=== PATIENT | male | born 1945 | race Caucasian/White ===

== ENCOUNTER → 2019-08-08 11:34 | Outpatient (BNVA) | payer MEDICARE, MEDICAID, SELFPAY | PROVIDERS: Family Provider Family Medicine; PCP Family Medicine; Visit Provider Nurse Practitioner | DX: N39.0 Urinary tract infection, site not specified (principal) | CPT/HCPCS: 81003 ==

== ENCOUNTER 2019-08-11 18:16 | Inpatient (IN) | payer MEDICARE, MEDICAID, SELFPAY ==
[2019-08-11 18:22] VITALS: BP 174/98; PULSE 112; RESP 28; TEMP 36.9; O2SAT 99; BMI 31.8
--- NOTE | 2019-08-11 22:49 | ED_ITS ---
Entered by Dena Simpson, acting as scribe for Darline Mckeon Aug 11, 2019 18:16 Documented by User: Darline Mckeon 08/12/19 04:22 HPI - General Adult General: Chief complaint: General Medical Stated complaint: poss bladder infection Time Seen by Provider: 08/11/19 22:41 History of Present Illness: HPI narrative: 74 y/o male presents to the ED with complaint of nausea. Pt was seen at Urgent Care on Friday and was dx with a bladder infection. Pt was placed on abx. He has had nausea and dry heaves today. Family reports a slow decline in overall health since June 2019. Pt has had decreased intake over he past several days. He denies any fevers or decreased stool output. He has had no chest pain or shortness of breath. He states that he will frequently get up to urinate but only a few drops will come out. He denies feeling distended and has never had an obstructed bladder. MD complaint: Nausea Onset (ago): day(s) Location: abdomen Pain Consistency: constant Relieving factors: none Exacerbating factors: eating Associated symptoms: Reports nausea and vomiting; Deny chest pain, confusion, diaphoresis, dyspnea, headache(s), rash, palpitations or syncope Review of Systems Const: Denies: fever, chills, body aches or diaphoresis Eyes: Denies: change in vision or blurry vision ENMT: Denies: throat pain, painful swallowing, hoarseness, ear pain, ear discharge, Change in hearing or nasal discharge Card: Denies: chest pain, palpitations, irregular heart rhythm, syncope, pre- syncope, shortness of breath on exertion or shortness of breath when lying down Resp: Denies: shortness of breath, productive cough, non-productive cough, wheezing, coughing up blood or chest congestion GI: Reports: nausea, vomiting and other (see HPI) : Denies: flank pain, difficulty urinating, painful urination, urinary frequency, urinary urgency, decreased urine ouput, urinary incontinence or blood in urine Musc: Denies: neck pain, back pain, extremity pain, extremity swelling, joint pain, joint swelling, joint warmth or joint stiffness Skin/Breast: Denies: rash, skin tenderness or yellow skin Neuro: Denies: headache, numbness in extremities, weakness in extremities, changes in sensation, lack of coordination, difficulty walking, dizziness, vertigo or confusion Endo: Denies: excessive thirst, tired all the time, cold intolerance, excessive sweating, flushing or hot flashes Satnam/Lymph: Denies: easy bruising, easy bleeding, petechiae or enlarged lymph nodes All/Imm: Denies: hives, throat swelling, tongue swelling, facial swelling or acute wheezing PFSH ED PFSH: Statuses (acute, chronic, etc) shown below reflect problem list status as previously entered and may not be historically accurate Medical History Skin cancer (Acute) 07/2017 large squamous cell skin cancer removed from right anterior chest wall. no metastasis. Surgical History S/P tonsillectomy (Acute) Family History (Updated 08/12/19 @ 14:16 by Maxi Borrego MD) Father Prostate cancer Social History Smoking and tobacco status: former smoker Quit status (tobacco): has quit using tobacco Second hand smoke exposure: No Smoking risk assessment/counseling performed?: No Alcohol intake: unknown Desire information about alcohol rehabilitation?: No Counseling given: No Desire information about substance/drug rehabilitation?: No Counseling given: No Adopted: No Caregiver/support person: No Lives independently: Yes Marital status: Single service: Yes Physical Exam Const: COMMON NORMALS: no apparent distress, oriented x3, no limitations, healthy appearing and well nourished EXAM LIMITATIONS: no altered mental status GENERAL APPEARANCE: cooperative, well kempt and well developed ORIENTATION/CONSCIOUSNESS: Yes awake HENMT: COMMON NORMALS: normocephalic, head/scalp atraumatic, hearing grossly n ormal bilaterally, external ears normal, EAC's normal, external nose normal and moist oral mucous membranes HEAD & SCALP: normal to inspection, normocephalic and atraumatic FACE & SINUS: normal facial exam and face symmetric NOSE: external nose normal and nares normal EXTERNAL EAR: Yes external ears normal EXTERNAL AUDITORY CANAL: EAC's normal MOUTH: oral and palatal mucosa normal and tongue normal Eye: COMMON NORMALS: PERRL, EOMs intact bilaterally, conjunctivae normal and no scleral icterus GENERAL EYE: normal appearance of both eyes and normal light reflex CONJUNCTIVA: Yes conjunctivae normal SCLERA: sclerae normal CORNEA: Yes corneas normal PUPIL: Yes PERRL DIRECT OPHTHALMOSCOPY: Yes normal light reflex Neck/C-Spine: COMMON NORMALS: full ROM, no lymphadenopathy, supple, no meningeal signs and no JVD GENERAL: Yes normal visual inspection and Yes trachea midline CERVICAL SPINE: Yes cervical ROM normal Chest: COMMONS NORMALS: inspection of chest normal and palpation of chest normal Resp: COMMON NORMALS: normal respiratory effort, no retractions, no use of accessory muscles and clear to auscultation bilaterally EFFORT & INSPECTION: Yes able to speak in complete sentences AUSCULTATION: clear to auscultation bilaterally Cardio: COMMON NORMALS: no JVD, regular rate, regular rhythm, S1 normal heart sound, S2 normal heart sound, no gallops, no clicks, no murmurs and no rub JUGULAR VENOUS DISTENTION: no JVD RATE: regular rate RHYTHM: regular rhythm HEART SOUNDS: S1 normal and S2 normal : COMMON NORMALS: Yes no CVA tenderness BLADDER/KIDNEY EXAM: Yes no CVA tenderness Back/Pelvis: COMMON NORMALS: no CVA tenderness, thoracic and lumbar spine normal to inspection, no thoracic nor lumbar tenderness and thoraco-lumbar ROM normal Extremity: COMMON NORMALS: normal to inspection, full ROM, normal capillary refill, no joint enlargement, no clubbing, cyanosis or edema and no calf tenderness Neuro: COMMON NORMALS: oriented x3, CN's II-XII intact bilaterally, moves all extremities, no focal motor deficits and no sensory deficits noted MENINGEAL SIGNS: Yes no meningeal signs Psych: COMMON NORMALS: mental status grossly normal, thought process normal, cooperative, affect normal, speech normal and activity/motor behavior normal APPEARANCE: Yes well kempt SPEECH: Yes normal speech THOUGHT PROCESS: normal thought process Skin: COMMON NORMALS: no rashes or lesions noted, skin turgor normal, no jaundice, no petechiae and no mottling GENERAL SKIN EXAM: no rashes or lesions noted and turgor normal Course ED course: 0049: Call out to Tele-Nephrology 0052: Dr. Giron will dialyze pt 0053: Dr. Degroot notified that pt will need dialysis catheter placed 0240: Dialysis catheter in place, dialysis nurse in dialysis room, ACLS certified nurse present and patient in dialysis. Patient had completed hyperkalemic cocktail prior to going to dialysis. Vital Signs: Vital signs: Vital Signs Temperature 98.6 F 08/13/19 06:00 Pulse Rate 91 08/13/19 14:00 Respiratory Rate 32 H 08/13/19 14:00 Blood Pressure 102/59 08/13/19 14:00 Pulse Oximetry 86 L 08/13/19 14:00 MDM - General Adult MDM Narrative: Medical decision making narrative: Patient arrives with complaint of urinary tract infection. Seen in urgent care 2 days prior and put on Bactrim but cannot tolerate secondary to nausea. Patient relates a gradual decline since June but family states he has had a much worse route over the past 2 to 3 days. Patient ill-appearing but not toxic. Walking and talking keeps trying to go to the bathroom but cannot produce any urine. Patient's labs returned with potassium of 9.2 and confirmed on recheck. Hyperkalemic cocktail was ordered and given by me. Dr. Hoffman consulted and has made arrangements for the patient to go to dialysis emergently. Dr. Degroot was gracious enough to come in and emergently put in a dialysis catheter for temporary dialysis. Boo catheter was placed with only 100 cc of dark urine obtained. Further work-up for renal failure has been placed by Dr. Hoffman. The case was reviewed with Dr. Borrego and he is aware of the patient's presence in the hospital. The patient is going to go to the dialysis room and then return to the ER as we currently have no available beds. Further care will be evaluated when the patient returns. Lab Data: Labs: Lab Results 08/11/19 08/11/19 08/11/19 Range/Units 23:45 23:46 23:46 WBC 11.4 H (4.0-10.0) 10^3/ uL RBC 3.81 L (4.1-5.3) 10^6/u L Hgb 11.2 L (11.7-16.6) g/dL Hct 37.7 L (42.0-52.0) % MCV 99.0 H (80-94) fL MCH 29.4 (28.0-34.0) pg MCHC 29.7 L (30.0-36.0) g/dL RDW 14.5 (12.1-15.1) % Plt Count 318 (130-400) 10^3/c mm MPV 10.0 (7.4-10.4) fL Neut % (Auto) 89.6 % Lymph % (Auto) 4.8 % Bladen % (Auto) 4.2 % Eos % (Auto) 0.4 % Baso % (Auto) 0.6 % Neut # (Auto) 10.2 H (1.8-7.7) 10^3/u L Lymph # (Auto) 0.6 L (0.8-4.8) 10^3/u L Bladen # (Auto) 0.5 (0.2-0.9) 10^3/u L Eos # (Auto) 0.1 (0.0-0.8) 10^3/u L Baso # (Auto) 0.1 (0.0-0.1) 10^3/u L Nucleated RBC % (a uto) 0 % Nucleated RBCs # 0.0 /100WBC Sodium 136 (136-145) mmol/L Potassium 9.2 H* (3.5-5.1) mmol/L Chloride 105 (98-107) mmol/L Carbon Dioxide 11 L (22-29) mmol/L Anion Gap 29.2 H (5-19) BUN 136 H* (8-23) mg/dL Creatinine 15.0 H* (0.7-1.2) mg/dL Glucose 137 H (74-106) mg/dL Calculated Osmolal ity (285-295) mOsm/k g Lactic Acid (0.5-2.2) mmol/L Calcium 11.1 H (8.8-10.2) mg/Dl Magnesium 2.3 (1.7-2.3) mg/dL Total Bilirubin 0.3 (0.15-1.2) mg/dL AST 14 (0-40) U/L ALT 12 (0-41) U/L Alkaline Phosphata se 121 (40-130) IU/L Troponin I 6 Hour (0-15) ng/L Troponin I Hi Sens Del (0-12) ng/L Troponin T Baselin e (0-15) ng/mL Troponin T 120 Min rincon (0-15) ng/mL Delta Troponin T (0-10) ABS# NT-Pro-B Natriuret Pep 92583 H (0-125) pg/mL Total Protein 9.1 H (6.6-8.7) g/dL Albumin 5.0 (3.5-5.2) g/dL Globulin 4.1 (1.3-4.6) g/dL Urine Color Yellow (Yellow) Urine Appearance Turbid (CLEAR) Urine pH 5 (5-7) Ur Specific Gravit y 1.015 (1.005-1.030) Urine Protein 3+ H (Negative) Urine Glucose (UA) Norm (Normal) Urine Ketones Negative (Negative) Urine Occult Blood 3+ H (Negative) Urine Nitrate Negative (Negative) Urine Bilirubin Neg (NEGATIVE) Urine Urobilinogen Norm (Negative) mg/dL Ur Leukocyte Leena ase 1+ H (Negative) Urine RBC 50-80 H (0-2) /hpf Urine WBC 15-25 H (0-5) /hpf Ur Squamous Epith Cells None (0-5) Ur Renal Epithelia l Cell 5-10 /hpf Urine Bacteria 2+ H (NONE) Urine Mucus 1+ Hep Bs Antigen (Nonreactive) Hep Bs Antibody (0-8.5) Hepatitis C Antibo dy (Nonreactive) Influenza Type A A g (Negative) POC Influenza B Ag (Negative) 08/11/19 08/11/19 08/12/19 Range/Units 23:46 23:46 00:15 WBC (4.0-10.0) 10^3/ uL RBC (4.1-5.3) 10^6/u L Hgb (11.7-16.6) g/dL Hct (42.0-52.0) % MCV (80-94) fL MCH (28.0-34.0) pg MCHC (30.0-36.0) g/dL RDW (12.1-15.1) % Plt Count (130-400) 10^3/c mm MPV (7.4-10.4) fL Neut % (Auto) % Lymph % (Auto) % Bladen % (Auto) % Eos % (Auto) % Baso % (Auto) % Neut # (Auto) (1.8-7.7) 10^3/u L Lymph # (Auto) (0.8-4.8) 10^3/u L Bladen # (Auto) (0.2-0.9) 10^3/u L Eos # (Auto) (0.0-0.8) 10^3/u L Baso # (Auto) (0.0-0.1) 10^3/u L Nucleated RBC % (a uto) % Nucleated RBCs # /100WBC Sodium (136-145) mmol/L Potassium (3.5-5.1) mmol/L Chloride (98-107) mmol/L Carbon Dioxide (22-29) mmol/L Anion Gap (5-19) BUN (8-23) mg/dL Creatinine (0.7-1.2) mg/dL Glucose (74-106) mg/dL Calculated Osmolal ity (285-295) mOsm/k g Lactic Acid 1.3 (0.5-2.2) mmol/L Calcium (8.8-10.2) mg/Dl Magnesium (1.7-2.3) mg/dL Total Bilirubin (0.15-1.2) mg/dL AST (0-40) U/L ALT (0-41) U/L Alkaline Phosphata se (40-130) IU/L Troponin I 6 Hour (0-15) ng/L Troponin I Hi Sens Del (0-12) ng/L Troponin T Baselin e 96 H (0-15) ng/mL Troponin T 120 Min rincon (0-15) ng/mL Delta Troponin T (0-10) ABS# NT-Pro-B Natriuret Pep (0-125) pg/mL Total Protein (6.6-8.7) g/dL Albumin (3.5-5.2) g/dL Globulin (1.3-4.6) g/dL Urine Color (Yellow) Urine Appearance (CLEAR) Urine pH (5-7) Ur Specific Gravit y (1.005-1.030) Urine Protein (Negative) Urine Glucose (UA) (Normal) Urine Ketones (Negative) Urine Occult Blood (Negative) Urine Nitrate (Negative) Urine Bilirubin (NEGATIVE) Urine Urobilinogen (Negative) mg/dL Ur Leukocyte Leena ase (Negative) Urine RBC (0-2) /hpf Urine WBC (0-5) /hpf Ur Squamous Epith Cells (0-5) Ur Renal Epithelia l Cell /hpf Urine Bacteria (NONE) Urine Mucus Hep Bs Antigen (Nonreactive) Hep Bs Antibody (0-8.5) Hepatitis C Antibo dy (Nonreactive) Influenza Type A A g Negative (Negative) POC Influenza B Ag Negative (Negative) 08/12/19 08/12/19 08/12/19 Range/Units 00:48 00:48 01:30 WBC (4.0-10.0) 10^3/ uL RBC (4.1-5.3) 10^6/u L Hgb (11.7-16.6) g/dL Hct (42.0-52.0) % MCV (80-94) fL MCH (28.0-34.0) pg MCHC (30.0-36.0) g/dL RDW (12.1-15.1) % Plt Count (130-400) 10^3/c mm MPV (7.4-10.4) fL Neut % (Auto) % Lymph % (Auto) % Bladen % (Auto) % Eos % (Auto) % Baso % (Auto) % Neut # (Auto) (1.8-7.7) 10^3/u L Lymph # (Auto) (0.8-4.8) 10^3/u L Bladen # (Auto) (0.2-0.9) 10^3/u L Eos # (Auto) (0.0-0.8) 10^3/u L Baso # (Auto) (0.0-0.1) 10^3/u L Nucleated RBC % (a uto) % Nucleated RBCs # /100WBC Sodium 136 (136-145) mmol/L Potassium 9.2 H* (3.5-5.1) mmol/L Chloride 106 (98-107) mmol/L Carbon Dioxide 11 L (22-29) mmol/L Anion Gap 28.2 H (5-19) BUN 135 H* (8-23) mg/dL Creatinine 15.0 H* (0.7-1.2) mg/dL Glucose 131 H (74-106) mg/dL Calculated Osmolal ity 287 (285-295) mOsm/k g Lactic Acid (0.5-2.2) mmol/L Calcium 10.7 H (8.8-10.2) mg/Dl Magnesium (1.7-2.3) mg/dL Total Bilirubin (0.15-1.2) mg/dL AST (0-40) U/L ALT (0-41) U/L Alkaline Phosphata se (40-130) IU/L Troponin I 6 Hour (0-15) ng/L Troponin I Hi Sens Del (0-12) ng/L Troponin T Baselin e (0-15) ng/mL Troponin T 120 Min rincon 96.46 H (0-15) ng/mL Delta Troponin T 0.46 (0-10) ABS# NT-Pro-B Natriuret Pep (0-125) pg/mL Total Protein (6.6-8.7) g/dL Albumin (3.5-5.2) g/dL Globulin (1.3-4.6) g/dL Urine Color (Yellow) Urine Appearance (CLEAR) Urine pH (5-7) Ur Specific Gravit y (1.005-1.030) Urine Protein (Negative) Urine Glucose (UA) (Normal) Urine Ketones (Negative) Urine Occult Blood (Negative) Urine Nitrate (Negative) Urine Bilirubin (NEGATIVE) Urine Urobilinogen (Negative) mg/dL Ur Leukocyte Leena ase (Negative) Urine RBC (0-2) /hpf Urine WBC (0-5) /hpf Ur Squamous Epith Cells (0-5) Ur Renal Epithelia l Cell /hpf Urine Bacteria (NONE) Urine Mucus Hep Bs Antigen Non-reactive (Nonreactive) Hep Bs Antibody (0-8.5) Hepatitis C Antibo dy (Nonreactive) Influenza Type A A g (Negative) POC Influenza B Ag (Negative) 08/12/19 08/12/19 08/12/19 Range/Units 01:30 01:30 06:22 WBC (4.0-10.0) 10^3/ uL RBC (4.1-5.3) 10^6/u L Hgb (11.7-16.6) g/dL Hct (42.0-52.0) % MCV (80-94) fL MCH (28.0-34.0) pg MCHC (30.0-36.0) g/dL RDW (12.1-15.1) % Plt Count (130-400) 10^3/c mm MPV (7.4-10.4) fL Neut % (Auto) % Lymph % (Auto) % Bladen % (Auto) % Eos % (Auto) % Baso % (Auto) % Neut # (Auto) (1.8-7.7) 10^3/u L Lymph # (Auto) (0.8-4.8) 10^3/u L Bladen # (Auto) (0.2-0.9) 10^3/u L Eos # (Auto) (0.0-0.8) 10^3/u L Baso # (Auto) (0.0-0.1) 10^3/u L Nucleated RBC % (a uto) % Nucleated RBCs # /100WBC Sodium (136-145) mmol/L Potassium (3.5-5.1) mmol/L Chloride (98-107) mmol/L Carbon Dioxide (22-29) mmol/L Anion Gap (5-19) BUN (8-23) mg/dL Creatinine (0.7-1.2) mg/dL Glucose (74-106) mg/dL Calculated Osmolal ity (285-295) mOsm/k g Lactic Acid (0.5-2.2) mmol/L Calcium (8.8-10.2) mg/Dl Magnesium (1.7-2.3) mg/dL Total Bilirubin (0.15-1.2) mg/dL AST (0-40) U/L ALT (0-41) U/L Alkaline Phosphata se (40-130) IU/L Troponin I 6 Hour 102.0 H (0-15) ng/L Troponin I Hi Sens Del 6.0 (0-12) ng/L Troponin T Baselin e (0-15) ng/mL Troponin T 120 Min rincon (0-15) ng/mL Delta Troponin T (0-10) ABS# NT-Pro-B Natriuret Pep (0-125) pg/mL Total Protein (6.6-8.7) g/dL Albumin (3.5-5.2) g/dL Globulin (1.3-4.6) g/dL Urine Color (Yellow) Urine Appearance (CLEAR) Urine pH (5-7) Ur Specific Gravit y (1.005-1.030) Urine Protein (Negative) Urine Glucose (UA) (Normal) Urine Ketones (Negative) Urine Occult Blood (Negative) Urine Nitrate (Negative) Urine Bilirubin (NEGATIVE) Urine Urobilinogen (Negative) mg/dL Ur Leukocyte Leena ase (Negative) Urine RBC (0-2) /hpf Urine WBC (0-5) /hpf Ur Squamous Epith Cells (0-5) Ur Renal Epithelia l Cell /hpf Urine Bacteria (NONE) Urine Mucus Hep Bs Antigen (Nonreactive) Hep Bs Antibody 3.5 (0-8.5) Hepatitis C Antibo dy Non-reactive (Nonreactive) Influenza Type A A g (Negative) POC Influenza B Ag (Negative) 08/12/19 08/12/19 Range/Units 06:22 06:22 WBC 16.0 H (4.0-10.0) 10^3/ uL RBC 3.59 L (4.1-5.3) 10^6/u L Hgb 11.0 L (11.7-16.6) g/dL Hct 35.9 L (42.0-52.0) % MCV 100.0 H (80-94) fL MCH 30.6 (28.0-34.0) pg MCHC 30.6 (30.0-36.0) g/dL RDW 14.5 (12.1-15.1) % Plt Count 181 (130-400) 10^3/c mm MPV 10.2 (7.4-10.4) fL Neut % (Auto) 87.7 % Lymph % (Auto) 3.6 % Bladen % (Auto) 7.5 % Eos % (Auto) 0.2 % Baso % (Auto) 0.4 % Neut # (Auto) 14.1 H (1.8-7.7) 10^3/u L Lymph # (Auto) 0.6 L (0.8-4.8) 10^3/u L Bladen # (Auto) 1.2 H (0.2-0.9) 10^3/u L Eos # (Auto) 0.0 (0.0-0.8) 10^3/u L Baso # (Auto) 0.1 (0.0-0.1) 10^3/u L Nucleated RBC % (a uto) 0 % Nucleated RBCs # 0.0 /100WBC Sodium 139 (136-145) mmol/L Potassium 5.2 H (3.5-5.1) mmol/L Chloride 102 (98-107) mmol/L Carbon Dioxide 14 L (22-29) mmol/L Anion Gap 28.2 H (5-19) BUN 98 H* (8-23) mg/dL Creatinine 11.5 H* (0.7-1.2) mg/dL Glucose 157 H (74-106) mg/dL Calculated Osmolal ity 292 (285-295) mOsm/k g Lactic Acid (0.5-2.2) mmol/L Calcium 10.2 (8.8-10.2) mg/Dl Magnesium (1.7-2.3) mg/dL Total Bilirubin (0.15-1.2) mg/dL AST (0-40) U/L ALT (0-41) U/L Alkaline Phosphata se (40-130) IU/L Troponin I 6 Hour (0-15) ng/L Troponin I Hi Sens Del (0-12) ng/L Troponin T Baselin e (0-15) ng/mL Troponin T 120 Min rincon (0-15) ng/mL Delta Troponin T (0-10) ABS# NT-Pro-B Natriuret Pep (0-125) pg/mL Total Protein (6.6-8.7) g/dL Albumin (3.5-5.2) g/dL Globulin (1.3-4.6) g/dL Urine Color (Yellow) Urine Appearance (CLEAR) Urine pH (5-7) Ur Specific Gravit y (1.005-1.030) Urine Protein (Negative) Urine Glucose (UA) (Normal) Urine Ketones (Negative) Urine Occult Blood (Negative) Urine Nitrate (Negative) Urine Bilirubin (NEGATIVE) Urine Urobilinogen (Negative) mg/dL Ur Leukocyte Leena ase (Negative) Urine RBC (0-2) /hpf Urine WBC (0-5) /hpf Ur Squamous Epith Cells (0-5) Ur Renal Epithelia l Cell /hpf Urine Bacteria (NONE) Urine Mucus Hep Bs Antigen (Nonreactive) Hep Bs Antibody (0-8.5) Hepatitis C Antibo dy (Nonreactive) Influenza Type A A g (Negative) POC Influenza B Ag (Negative) Discharge Plan Discharge Patient Disposition: Admitted As Inpatient Admit Provider: Maxi Borrego Discharge Date/Time: 08/12/19 13:35 Sign Out Sign Out Data: Patient Sign Out occurred on 08/12/19 at 08:22. Patient's care was discussed, and care was transferred from to Peter Pacheco DO. 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 no metastasis. Surgical History S/P tonsillectomy (Acute) Family History (Updated 08/12/19 @ 14:16 by Maxi Borrego MD) Father Prostate cancer Social History Smoking and tobacco status: former smoker Quit status (tobacco): has quit using tobacco Second hand smoke exposure: No Smoking risk assessment/counseling performed?: No Alcohol intake: unknown Desire information about alcohol rehabilitation?: No Counseling given: No Desire information about substance/drug rehabilitation?: No Counseling given: No Adopted: No Caregiver/support person: No Lives independently: Yes Marital status: Single service: Yes Course ED course: Care assumed a change of shift from Dr. Dill. I did check on the patient reexam heart regular without murmur, lungs were clear. She is resting comfortably we are waiting bed availability. See previous notes. She did go to dialysis and then return to the ER while waiting rooms due to her extremely high senses at this time. Vital Signs: Vital signs: Vital Signs Temperature 98.6 F 08/13/19 06:00 Pulse Rate 91 08/13/19 14:00 Respiratory Rate 32 H 08/13/19 14:00 Blood Pressure 102/59 08/13/19 14:00 Pulse Oximetry 86 L 08/13/19 14:00 [facility] - General Adult Lab Data: Labs: Lab Results 08/11/19 08/11/19 08/11/19 Range/Units 23:45 23:46 23:46 WBC 11.4 H (4.0-10.0) 10^3/ uL RBC 3.81 L (4.1-5.3) 10^6/u L Hgb 11.2 L (11.7-16.6) g/dL Hct 37.7 L (42.0-52.0) % MCV 99.0 H (80-94) fL MCH 29.4 (28.0-34.0) pg MCHC 29.7 L (30.0-36.0) g/dL RDW 14.5 (12.1-15.1) % Plt Count 318 (130-400) 10^3/c mm MPV 10.0 (7.4-10.4) fL Neut % (Auto) 89.6 % Lymph % (Auto) 4.8 % Bladen % (Auto) 4.2 % Eos % (Auto) 0.4 % Baso % (Auto) 0.6 % Neut # (Auto) 10.2 H (1.8-7.7) 10^3/u L Lymph # (Auto) 0.6 L (0.8-4.8) 10^3/u L Bladen # (Auto) 0.5 (0.2-0.9) 10^3/u L Eos # (Auto) 0.1 (0.0-0.8) 10^3/u L Baso # (Auto) 0.1 (0.0-0.1) 10^3/u L Nucleated RBC % (a uto) 0 % Nucleated RBCs # 0.0 /100WBC Sodium 136 (136-145) mmol/L Potassium 9.2 H* (3.5-5.1) mmol/L Chloride 105 (98-107) mmol/L Carbon Dioxide 11 L (22-29) mmol/L Anion Gap 29.2 H (5-19) BUN 136 H* (8-23) mg/dL Creatinine 15.0 H* (0.7-1.2) mg/dL Glucose 137 H (74-106) mg/dL Calculated Osmolal ity (285-295) mOsm/k g Lactic Acid (0.5-2.2) mmol/L Calcium 11.1 H (8.8-10.2) mg/Dl Magnesium 2.3 (1.7-2.3) mg/dL Total Bilirubin 0.3 (0.15-1.2) mg/dL AST 14 (0-40) U/L ALT 12 (0-41) U/L Alkaline Phosphata se 121 (40-130) IU/L Troponin I 6 Hour (0-15) ng/L Troponin I Hi Sens Del (0-12) ng/L Troponin T Baselin e (0-15) ng/mL Troponin T 120 Min rincon (0-15) ng/mL Delta Troponin T (0-10) ABS# NT-Pro-B Natriuret Pep 25552 H (0-125) pg/mL Total Protein 9.1 H (6.6-8.7) g/dL Albumin 5.0 (3.5-5.2) g/dL Globulin 4.1 (1.3-4.6) g/dL Urine Color Yellow (Yellow) Urine Appearance Turbid (CLEAR) Urine pH 5 (5-7) Ur Specific Gravit y 1.015 (1.005-1.030) Urine Protein 3+ H (Negative) Urine Glucose (UA) Norm (Normal) Urine Ketones Negative (Negative) Urine Occult Blood 3+ H (Negative) Urine Nitrate Negative (Negative) Urine Bilirubin Neg (NEGATIVE) Urine Urobilinogen Norm (Negative) mg/dL Ur Leukocyte Leena ase 1+ H (Negative) Urine RBC 50-80 H (0-2) /hpf Urine WBC 15-25 H (0-5) /hpf Ur Squamous Epith Cells None (0-5) Ur Renal Epithelia l Cell 5-10 /hpf Urine Bacteria 2+ H (NONE) Urine Mucus 1+ Hep Bs Antigen (Nonreactive) Hep Bs Antibody (0-8.5) Hepatitis C Antibo dy (Nonreactive) Influenza Type A A g (Negative) POC Influenza B Ag (Negative) 08/11/19 08/11/1908/12/20 Range/Units 23:46 23:46 00:15 WBC (4.0-10.0) 10^3/ uL RBC (4.1-5.3) 10^6/u L Hgb (11.7-16.6) g/dL Hct (42.0-52.0) % MCV (80-94) fL MCH (28.0-34.0) pg MCHC (30.0-36.0) g/dL RDW (12.1-15.1) % Plt Count (130-400) 10^3/c mm MPV (7.4-10.4) fL Neut % (Auto) % Lymph % (Auto) % Bladen % (Auto) % Eos % (Auto) % Baso % (Auto) % Neut # (Auto) (1.8-7.7) 10^3/u L Lymph # (Auto) (0.8-4.8) 10^3/u L Bladen # (Auto) (0.2-0.9) 10^3/u L Eos # (Auto) (0.0-0.8) 10^3/u L Baso # (Auto) (0.0-0.1) 10^3/u L Nucleated RBC % (a uto) % Nucleated RBCs # /100WBC Sodium (136-145) mmol/L Potassium (3.5-5.1) mmol/L Chloride (98-107) mmol/L Carbon Dioxide (22-29) mmol/L Anion Gap (5-19) BUN (8-23) mg/dL Creatinine (0.7-1.2) mg/dL Glucose (74-106) mg/dL Calculated Osmolal ity (285-295) mOsm/k g Lactic Acid 1.3 (0.5-2.2) mmol/L Calcium (8.8-10.2) mg/Dl Magnesium (1.7-2.3) mg/dL Total Bilirubin (0.15-1.2) mg/dL AST (0-40) U/L ALT (0-41) U/L Alkaline Phosphata se (40-130) IU/L Troponin I 6 Hour (0-15) ng/L Troponin I Hi Sens Del (0-12) ng/L Troponin T Baselin e 96 H (0-15) ng/mL Troponin T 120 Min rincon (0-15) ng/mL Delta Troponin T (0-10) ABS# NT-Pro-B Natriuret Pep (0-125) pg/mL Total Protein (6.6-8.7) g/dL Albumin (3.5-5.2) g/dL Globulin (1.3-4.6) g/dL Urine Color (Yellow) Urine Appearance (CLEAR) Urine pH (5-7) Ur Specific Gravit y (1.005-1.030) Urine Protein (Negative) Urine Glucose (UA) (Normal) Urine Ketones (Negative) Urine Occult Blood (Negative) Urine Nitrate (Negative) Urine Bilirubin (NEGATIVE) Urine Urobilinogen (Negative) mg/dL Ur Leukocyte Leena ase (Negative) Urine RBC (0-2) /hpf Urine WBC (0-5) /hpf Ur Squamous Epith Cells (0-5) Ur Renal Epithelia l Cell /hpf Urine Bacteria (NONE) Urine Mucus Hep Bs Antigen (Nonreactive) Hep Bs Antibody (0-8.5) Hepatitis C Antibo dy (Nonreactive) Influenza Type A A g Negative (Negative) POC Influenza B Ag Negative (Negative) 08/12/19 08/12/19 08/12/19 Range/Units 00:48 00:48 01:30 WBC (4.0-10.0) 10^3/ uL RBC (4.1-5.3) 10^6/u L Hgb (11.7-16.6) g/dL Hct (42.0-52.0) % MCV (80-94) fL MCH (28.0-34.0) pg MCHC (30.0-36.0) g/dL RDW (12.1-15.1) % Plt Count (130-400) 10^3/c mm MPV (7.4-10.4) fL Neut % (Auto) % Lymph % (Auto) % Bladen % (Auto) % Eos % (Auto) % Baso % (Auto) % Neut # (Auto) (1.8-7.7) 10^3/u L Lymph # (Auto) (0.8-4.8) 10^3/u L Bladen # (Auto) (0.2-0.9) 10^3/u L Eos # (Auto) (0.0-0.8) 10^3/u L Baso # (Auto) (0.0-0.1) 10^3/u L Nucleated RBC % (a uto) % Nucleated RBCs # /100WBC Sodium 136 (136-145) mmol/L Potassium 9.2 H* (3.5-5.1) mmol/L Chloride 106 (98-107) mmol/L Carbon Dioxide 11 L (22-29) mmol/L Anion Gap 28.2 H (5-19) BUN 135 H* (8-23) mg/dL Creatinine 15.0 H* (0.7-1.2) mg/dL Glucose 131 H (74-106) mg/dL Calculated Osmolal ity 287 (285-295) mOsm/k g Lactic Acid (0.5-2.2) mmol/L Calcium 10.7 H (8.8-10.2) mg/Dl Magnesium (1.7-2.3) mg/dL Total Bilirubin (0.15-1.2) mg/dL AST (0-40) U/L ALT (0-41) U/L Alkaline Phosphata se (40-130) IU/L Troponin I 6 Hour (0-15) ng/L Troponin I Hi Sens Del (0-12) ng/L Troponin T Baselin e (0-15) ng/mL Troponin T 120 Min rincon 96.46 H (0-15) ng/mL Delta Troponin T 0.46 (0-10) ABS# NT-Pro-B Natriuret Pep (0-125) pg/mL Total Protein (6.6-8.7) g/dL Albumin (3.5-5.2) g/dL Globulin (1.3-4.6) g/dL Urine Color (Yellow) Urine Appearance (CLEAR) Urine pH (5-7) Ur Specific Gravit y (1.005-1.030) Urine Protein (Negative) Urine Glucose (UA) (Normal) Urine Ketones (Negative) Urine Occult Blood (Negative) Urine Nitrate (Negative) Urine Bilirubin (NEGATIVE) Urine Urobilinogen (Negative) mg/dL Ur Leukocyte Leena ase (Negative) Urine RBC (0-2) /hpf Urine WBC (0-5) /hpf Ur Squamous Epith Cells (0-5) Ur Renal Epithelia l Cell /hpf Urine Bacteria (NONE) Urine Mucus Hep Bs Antigen Non-reactive (Nonreactive) Hep Bs Antibody (0-8.5) Hepatitis C Antibo dy (Nonreactive) Influenza Type A A g (Negative) POC Influenza B Ag (Negative) 08/12/19 08/12/19 08/12/19 Range/Units 01:30 01:30 06:22 WBC (4.0-10.0) 10^3/ uL RBC (4.1-5.3) 10^6/u L Hgb (11.7-16.6) g/dL Hct (42.0-52.0) % MCV (80-94) fL MCH (28.0-34.0) pg MCHC (30.0-36.0) g/dL RDW (12.1-15.1) % Plt Count (130-400) 10^3/c mm MPV (7.4-10.4) fL Neut % (Auto) % Lymph % (Auto) % Bladen % (Auto) % Eos % (Auto) % Baso % (Auto) % Neut # (Auto) (1.8-7.7) 10^3/u L Lymph # (Auto) (0.8-4.8) 10^3/u L Bladen # (Auto) (0.2-0.9) 10^3/u L Eos # (Auto) (0.0-0.8) 10^3/u L Baso # (Auto) (0.0-0.1) 10^3/u L Nucleated RBC % (a uto) % Nucleated RBCs # /100WBC Sodium (136-145) mmol/L Potassium (3.5-5.1) mmol/L Chloride (98-107) mmol/L Carbon Dioxide (22-29) mmol/L Anion Gap (5-19) BUN (8-23) mg/dL Creatinine (0.7-1.2) mg/dL Glucose (74-106) mg/dL Calculated Osmolal ity (285-295) mOsm/k g Lactic Acid (0.5-2.2) mmol/L Calcium (8.8-10.2) mg/Dl Magnesium (1.7-2.3) mg/dL Total Bilirubin (0.15-1.2) mg/dL AST (0-40) U/L ALT (0-41) U/L Alkaline Phosphata se (40-130) IU/L Troponin I 6 Hour 102.0 H (0-15) ng/L Troponin I Hi Sens Del 6.0 (0-12) ng/L Troponin T Baselin e (0-15) ng/mL Troponin T 120 Min rincon (0-15) ng/mL Delta Troponin T (0-10) ABS# NT-Pro-B Natriuret Pep (0-125) pg/mL Total Protein (6.6-8.7) g/dL Albumin (3.5-5.2) g/dL Globulin (1.3-4.6) g/dL Urine Color (Yellow) Urine Appearance (CLEAR) Urine pH (5-7) Ur Specific Gravit y (1.005-1.030) Urine Protein (Negative) Urine Glucose (UA) (Normal) Urine Ketones (Negative) Urine Occult Blood (Negative) Urine Nitrate (Negative) Urine Bilirubin (NEGATIVE) Urine Urobilinogen (Negative) mg/dL Ur Leukocyte Leena ase (Negative) Urine RBC (0-2) /hpf Urine WBC (0-5) /hpf Ur Squamous Epith Cells (0-5) Ur Renal Epithelia l Cell /hpf Urine Bacteria (NONE) Urine Mucus Hep Bs Antigen (Nonreactive) Hep Bs Antibody 3.5 (0-8.5) Hepatitis C Antibo dy Non-reactive (Nonreactive) Influenza Type A A g (Negative) POC Influenza B Ag (Negative) 08/12/19 08/12/19 Range/Units 06:22 06:22 WBC 16.0 H (4.0-10.0) 10^3/ uL RBC 3.59 L (4.1-5.3) 10^6/u L Hgb 11.0 L (11.7-16.6) g/dL Hct 35.9 L (42.0-52.0) % MCV 100.0 H (80-94) fL MCH 30.6 (28.0-34.0) pg MCHC 30.6 (30.0-36.0) g/dL RDW 14.5 (12.1-15.1) % Plt Count 181 (130-400) 10^3/c mm MPV 10.2 (7.4-10.4) fL Neut % (Auto) 87.7 % Lymph % (Auto) 3.6 % Bladen % (Auto) 7.5 % Eos % (Auto) 0.2 % Baso % (Auto) 0.4 % Neut # (Auto) 14.1 H (1.8-7.7) 10^3/u L Lymph # (Auto) 0.6 L (0.8-4.8) 10^3/u L Bladen # (Auto) 1.2 H (0.2-0.9) 10^3/u L Eos # (Auto) 0.0 (0.0-0.8) 10^3/u L Baso # (Auto) 0.1 (0.0-0.1) 10^3/u L Nucleated RBC % (a uto) 0 % Nucleated RBCs # 0.0 /100WBC Sodium 139 (136-145) mmol/L Potassium 5.2 H (3.5-5.1) mmol/L Chloride 102 (98-107) mmol/L Carbon Dioxide 14 L (22-29) mmol/L Anion Gap 28.2 H (5-19) BUN 98 H* (8-23) mg/dL Creatinine 11.5 H* (0.7-1.2) mg/dL Glucose 157 H (74-106) mg/dL Calculated Osmolal ity 292 (285-295) mOsm/k g Lactic Acid (0.5-2.2) mmol/L Calcium 10.2 (8.8-10.2) mg/Dl Magnesium (1.7-2.3) mg/dL Total Bilirubin (0.15-1.2) mg/dL AST (0-40) U/L ALT (0-41) U/L Alkaline Phosphata se (40-130) IU/L Troponin I 6 Hour (0-15) ng/L Troponin I Hi Sens Del (0-12) ng/L Troponin T Baselin e (0-15) ng/mL Troponin T 120 Min rincon (0-15) ng/mL Delta Troponin T (0-10) ABS# NT-Pro-B Natriuret Pep (0-125) pg/mL Total Protein (6.6-8.7) g/dL Albumin (3.5-5.2) g/dL Globulin (1.3-4.6) g/dL Urine Color (Yellow) Urine Appearance (CLEAR) Urine pH (5-7) Ur Specific Gravit y (1.005-1.030) Urine Protein (Negative) Urine Glucose (UA) (Normal) Urine Ketones (Negative) Urine Occult Blood (Negative) Urine Nitrate (Negative) Urine Bilirubin (NEGATIVE) Urine Urobilinogen (Negative) mg/dL Ur Leukocyte Leena ase (Negative) Urine RBC (0-2) /hpf Urine WBC (0-5) /hpf Ur Squamous Epith Cells (0-5) Ur Renal Epithelia l Cell /hpf Urine Bacteria (NONE) Urine Mucus Hep Bs Antigen (Nonreactive) Hep Bs Antibody (0-8.5) Hepatitis C Antibo dy (Nonreactive) Influenza Type A A g (Negative) POC Influenza B Ag (Negative) Discharge Plan Discharge Patient Disposition: Admitted As Inpatient Admit Provider: Maxi Borrego Discharge Date/Time: 08/12/19 13:35 Sign Out Sign Out Data: Patient Sign Out occurred on 08/12/19 at 08:22. Patient's care was discussed, and care was transferred from to Peter Pacheco DO. Coding Level of Care Code ED Beer Brewer for Chg Fwd Exam Problem Focused The documentation recorded by the Calvin serra Ashley, accurately reflects the service I personally performed and the decisions made by Mike srinivasan Eli N Aug 11, 2019 18:16
--- NOTE | 2019-08-11 22:57 | XR_ITS ---
WS: [id number] PORTABLE CHEST HISTORY: cough COMPARISON: 07/10/2017 Mild pulmonary hyperinflation. No pneumonia. Normal vasculature. No pleural effusion or pneumothorax. Cardiac size: Mildly enlarged cardiac silhouette. Mediastinum/Aorta: Normal mediastinum. No osseous abnormality seen. XR/XR chest 1V portable [id number] IMPRESSION: Mild cardiomegaly, no pneumonia.
[2019-08-11] MEDS: sodium chloride 0.9% 1,000 ML 100 ML IV (23:51)
[2019-08-11 23:55] LABS: Basophils # 0.1 10^3/uL (0.0-0.1); Basophils % 0.6 %; Eosinophils # 0.1 10^3/uL (0.0-0.8); Eosinophils % 0.4 %; Hematocrit 37.7 % (42.0-52.0); Hemoglobin 11.2 g/dL (11.7-16.6); Lymphocytes # 0.6 10^3/uL (0.8-4.8); Lymphocytes % 4.8 %; Mean Corpuscular HGB Conc 29.7 g/dL (30.0-36.0); Mean Corpuscular Hemoglobin 29.4 pg (28.0-34.0); Monocytes # 0.5 10^3/uL (0.2-0.9); Monocytes % 4.2 %; Neutrophils # 10.2 10^3/uL (1.8-7.7); Neutrophils % 89.6 %; Nucleated Red Blood Cells % 0 %; Platelet Count 318 10^3/cmm (130-400); Red Blood Count 3.81 10^6/uL (4.1-5.3); Red Cell Distribution Width 14.5 % (12.1-15.1); White Blood Count 11.4 10^3/uL (4.0-10.0)
[2019-08-12] VITALS (135 sets, daily range): BP systolic 103–172; BP diastolic 57–130; PULSE 68–125; RESP 10–30; TEMP 36.5–36.8; O2SAT 88–100
[2019-08-12 00:05] LABS: Bacteria Urine 2+; Bilirubin Urine Neg (NEGATIVE); Blood Urine 3+ (Negative); Glucose Urine UA Norm (Normal); Ketones Urine Negative (Negative); Leukocyte Esterase Urine 1+ (Negative); Nitrate Urine Negative (Negative); Protein Urine 3+ (Negative); RBC Urine 50-80 /hpf (0-2); Specific Gravity, Urine 1.015 (1.005-1.030); Urine Appearance Turbid (CLEAR); Urine Color Yellow (Yellow); Urobilinogen Urine Norm (Negative); WBC Urine 15-25 /hpf (0-5); pH Urine 5 (5-7)
[2019-08-12 00:06] LABS: Add Urine Culture? Yes; Mucus Urine 1+
[2019-08-12 00:13] LABS: Lactic Sepsis W/Reflex 1.3 mmol/L (0.5-2.2); Troponin(5th) Baseline 96 ng/mL (0-15)
[2019-08-12 00:23] LABS: Alanine Aminotransferase 12 U/L (0-41); Alkaline Phosphatase 121 IU/L (40-130); Anion Gap 29.2 (5-19); Aspartate Amino Transferase 14 U/L (0-40); Calcium 11.1 mg/Dl (8.8-10.2); Carbon Dioxide 11 mmol/L (22-29); Chloride 105 mmol/L (98-107); Globulin 4.1 g/dL (1.3-4.6); Glucose 137 mg/dL (74-106); Magnesium 2.3 mg/dL (1.7-2.3); NT Pro B Type Natriuretic Pept 18178 pg/mL (0-125); Sodium 136 mmol/L (136-145); Total Bilirubin 0.3 mg/dL (0.15-1.2); Total Protein 9.1 g/dL (6.6-8.7)
[2019-08-12 00:31] LABS: Blood Urea Nitrogen 136 mg/dL (8-23); Potassium 9.2 mmol/L (3.5-5.1)
[2019-08-12 00:48] LABS: Influenza A by IFA Negative (Negative); Influenza B by IFA Negative (Negative)
--- NOTE | 2019-08-12 00:58 | ECG_ITS ---
Measurements Intervals [place] Rate: 99 P: 72 MA: 193 QRS: -41 QRSD: 142 T: 101 QT: 356 QTc: 457 SINUS RHYTHM MARKED LEFT AXIS DEVIATION [QRS AXIS < -30] INTRAVENTRICULAR CONDUCTION DELAY [130+ ms QRS DURATION] Compared to ECG 11/07/2017 09:50:08 Left-axis deviation now present Intraventricular conduction delay now present Sinus arrhythmia no longer present Electronically Signed On 08-12-2019 15:28:07 STATION INSTALLER by Elias Hazel M.D. [id number]
[2019-08-12 01:08] LABS: Anion Gap 28.2 (5-19); Calcium 10.7 mg/Dl (8.8-10.2); Carbon Dioxide 11 mmol/L (22-29); Chloride 106 mmol/L (98-107); Glucose 131 mg/dL (74-106); Sodium 136 mmol/L (136-145)
[2019-08-12 01:11] LABS: Troponin 5 2HR 96.46 ng/mL (0-15); Troponin 5 2HR Delta 0.46 ABS# (0-10)
[2019-08-12 01:20] LABS: Osmolality Calculated 287 mOsm/kg (285-295)
[2019-08-12 01:25] LABS: Blood Urea Nitrogen 135 mg/dL (8-23); Potassium 9.2 mmol/L (3.5-5.1)
--- NOTE | 2019-08-12 01:28 | US_ITS ---
WS: [id number] RENAL ULTRASOUND HISTORY: jonathan COMPARISON: No similar studies. CT abdomen 06/16/2017. TECHNIQUE: 2-D and color Doppler imaging of the kidney submitted. Right kidney: 13.9 cm x 4.1 cm x 5.0 cm. Mildly enlarged kidney with diffuse cortical thinning. Moderate to severe RIGHT hydronephrosis. Proxi mal ureter is also dilated. Small exophytic cysts from the kidney with no solid mass. Largest cyst me asures 2.0 x 1.9 x 1.9 cm from the superior pole. Left kidney: 14.4 cm x 5.2 cm x 5.6 cm. Mildly enlarged kidney with diffuse cortical thinning. No hydronephrosis. Multiple cortical cysts. Th e largest cyst from the mid kidney measures 4.5 x 3.3 x 3.3 cm. Aorta: Mild dilatation and atherosclerosis aorta. Maximum diameter 2.5 cm. Urinary Bladder: Urinary bladder is minimally distended. There is a Boo catheter present. Prostate gland is enlarged. Hyperechoic nodule in the floor the gallbladder. This nodule measures 12 mm. US/US renal BI* [id number] IMPRESSION: 1. Moderate to severe RIGHT hydronephrosis. 2. Bilateral renal cysts. 3. Hyperechoic nodule in the gallbladder measures 12 mm. Due to the size and a ppearance this could be neoplastic or benign polyp or tumefactive sludge.
--- NOTE | 2019-08-12 01:32 | P.CONIM_ITS ---
Providers/Reason For Consult Consulting Physican/Specialty*: telenephrology Reason for Consult*: alonso/ hyperkalemia Requesting Physcian: Dr. Dill and Dr. Borrego Primary Care Provider: Maxi Borrego MD History of Present Illness History of Present Illness Laura Wu is a 74 year old male here w/ weakness, diarrhea, difficulty urinating. has shakes and weakness. the pt went to [facility] on 08/08/19 w/ these symptoms and was given bactrim.. pt had nausea w/ bactrim and only took it for a couple of days and is in ER tonight as he has worsened and has diarrhea, confusion, wekaness, subjective chills. Review of Systems Narrative: weak, no visula issues. no cp. ++ sob, + nausea, itching, difficulty urinating. no leg edema, + confusion. rest of ROS is negative. he took some bactrim at home, aand some pepto bismul Meds/Allergies Home Medications and Allergies Home Medications Medication Instructions Recorded Confirmed Type No Known Home Medications 08/08/19 08/08/19 History Allergies Allergy/AdvReac Type Severity Reaction Status Date / Time No Known Allergies Allergy Unverified 08/11/19 18:28 Current Medications Current Medications Generic Name Dose Route Start Last Admin Trade Name Freq PRN Reason Stop Dose Admin Sodium Chloride 1,000 mls @ 100 mls/hr 08/11/19 23:00 08/11/19 23:51 Sodium Chloride 0.9% IV 100 mls/hr .Q10H MARIANA Administration PFSH Acute PFSH: Statuses (acute, chronic, etc) shown below reflect problem list status as previously entered and may not be historically accurate Medical History (Updated 08/08/19 @ 11:52 by JOAQUIM Allen) Heart attack (Acute) Skin cancer (Acute) Social History (Updated 08/08/19 @ 11:28 by YISEL Bailey) Smoking and tobacco status: former smoker Quit status (tobacco): has quit using tobacco Second hand smoke exposure: No Smoking risk assessment/counseling performed?: No Alcohol intake: unknown Desire information about alcohol rehabilitation?: No Counseling given: No Desire information about substance/drug rehabilitation?: No Counseling given: No Adopted: No Caregiver/support person: No Lives independently: Yes Marital status: Single service: Yes Vitals/I&O/Wt Last Vital Signs Temp 98.4 F 08/11/19 18:22 Pulse 107 H 08/12/19 01:16 Resp 16 08/12/19 01:05 BP 153/130 08/12/19 00:45 Pulse Ox 96 08/12/19 01:05 Weight last 48 hrs Weight 103.419 kg Physical Exam Narrative: EXAM NARRATIVE: vs noted heent- nc/at, eomi, anicteric neck- no jvp lungs crackles heart reg, +DAYSI abd soft, distended ext minimal edema neuro- asterixis pulses + Data Micro: Micro: Microbiology 08/11/19 23:46 Blood Culture - Pr eliminary Blood SPECIMEN [facility] JUSTA 08/11/19 23:40 Blood Culture - Pr eliminary Blood SPECIMEN [facility] JUSTA A&P Additional A&P Information 74 yr old man 1. cr was 1.0 and 1.1 in aug 2017 and October 2017. ALONSO- place contreras -renal us -hyperkalemia/ met acidosis/ ALONSO/ uremia- Dr. Degroot is placing an emergency shiley catheter, and we will dialyze for 2.5 hrs, 2k bath, remove 1.5 l as tolerated, qd 500, qb 250 -send serologies further eval based on renal imaging- pt has hematuria. monitor bp mild leukocytosis- look for infection mild anemia Consult Attestations Medical Necessity Statement: alonso, hyperkalemia, met acidosis Time Spent in Patient Care: Greater than 35 minutes (>than 50% of time spent in counselling and/or direct pt care on unit) . Critical Care Time: i performed critical care for ALONSO, met acidosis- pt at risk for arrythmia Critical Care Time (min): 45 Coding Level of Care Code Acute Environmental Services Attendant for Noé Kumar
[2019-08-12] MEDS: dextrose 50% syringe 50 mL IVP (01:35)
[2019-08-12] MEDS: FUROsemide 10 mg/mL SDV 10mL 60 MG IVP (01:35)
[2019-08-12] MEDS: calcium gluconate 0.1 gm/mL 10% SDV 10mL 1 GM IVP (01:35)
[2019-08-12] MEDS: sodium bicarbonate 8.4% 1 mEq/mL 50mL Syr 100 MEQ IVP (01:36)
[2019-08-12] MEDS: insulin regular-human 100 units/1 mL 10 UNIT IVP (01:36)
--- NOTE | 2019-08-12 01:48 | CT_ITS ---
WS: [id number] CT ABDOMEN AND PELVIS NONCONTRAST HISTORY: hematuria, difficulty urinating- check kidneys TECHNIQUE: Imaging performed through the abdomen and pelvis. Coronal and sagittal reformats are submi tted. All CT scans at [facility] use at least one of these dose optimization techniques: automated exposure control; mA and/or kV adjustment per patient size (includes targeted exams where d ose is matched to clinical indication); or iterative reconstruction. DLP: 1578.43 mGy.cm COMPARISON: 06/16/2017 Lower thorax: Lung bases are clear. Previously seen pleural effusions have resolved. Mild enlargement of the heart and small hiatal hernia. Liver: Normal, no mass or intrahepatic dilatation. Gallbladder: Unremarkable. Pancreas: Normal. Spleen: Normal. Adrenal glands: Normal. Right kidney: Moderate to severe hydronephrosis and hydroureter. There is mild cortical thinning thro ughout the kidney. No renal or ureteral stones are identified. Small cortical cysts with the largest from the superior pole measuring 2.6 cm. Mild perinephric stranding. The entire RIGHT ureter is dilat ed to the urinary bladder. Left kidney: Mild perinephric stranding. There is very mild dilatation of the LEFT renal pelvis and L EFT ureter to the urinary bladder. No renal or ureteral stones. LEFT renal cyst with largest diameter 4.3 cm. Mild atherosclerosis aorta. Very slight dilatation with no aneurysm. No free fluid, intraperitoneal air or significant lymphadenopathy. GI tract: No GI tract obstruction. Scattered diverticula throughout the colon. The appendix is normal . Abdominal wall: Fat-containing umbilical hernia with a neck measuring 1.7 cm. Pelvis: Boo catheter is present in the urinary bladder. There is marked thickening of the urinary b ladder wall. Difficult to measure without contrast. There is also enlargement of the prostate gland a nd a lobulated prostate gland. Soft tissue mass at the base of the urinary bladder is probably the pr ostate gland or bladder neoplasm. Transverse diameter of the lobulated mass is 7.9 cm which is obstru cting the ureters bilaterally and causing the hydronephrosis. Inguinal canals are patent bilaterally containing fat. RIGHT femoral vein catheter has been placed. Small amount of postprocedure hematoma a nd bleeding at the groin. Osseous structures: No osteoblastic or osteolytic bone disease. CT/CT abdomen pelvis wo con [id number] IMPRESSION: 1. Moderate to severe RIGHT and mild LEFT hydroureteronephrosis. Obstruction s econdary to mass in the floor of the urinary bladder which is probably the pros choi gland or bladder mass. 2. Lobulated enlarged prostate gland. Without contrast cannot evaluate further . 3. Diverticulosis without diverticulitis. 4. Normal gallbladder. 5. Bilateral renal cysts. 6. RIGHT femoral vein vascular catheter with a small amount of postprocedure b leeding at the groin.
--- NOTE | 2019-08-12 02:00 | P.OP_ITS ---
Operative Report Date of procedure: 08/12/19 Pre-op Diagnosis: Acute renal failure. Post-op diagnosis: same Procedure Done: Temporary hemodialysis catheter placement into the right femoral vein. Implants: As above. Pathology: none sent Surgeon: Leo Degroot Anesthesia: Local Estimated blood loss (mL): 10 Procedure: The patient was encountered in the emergency room in a supine position on his gurney. The right femoral area was prepped and draped in a sterile fashion. 1% lidocaine was used for local anesthetic. The right femoral vein vein was accessed with a needle and syringe as evidenced by the return of dark nonpulsatile blood. The guidewire was easily passed down the needle and the needle was removed. A scalpel was used to slightly enlarge the skin opening at the insertion point of the J-wire. Small to medium sized dilators were then sequentially placed ov er the guidewire to dilate the skin and subcutaneous tissue. The dialysis catheter was then easily passed over the wire into the vein. The wire was removed. Both ports were aspirated and flushed with hep flush solution. Both ports showed excellent flow and were then left filled with concentrated hep flush solution. The catheter was sewn in place with some interrupted sutures of 2-0 nylon. A sterile dressing followed.
[2019-08-12 02:03] LABS: Hepatitis C Virus Antibody Non-Reactive (Nonreactive)
[2019-08-12 02:04] LABS: Hepatitis B Surface AB. 3.5 (0-8.5)
[2019-08-12 02:06] LABS: Hepatitis B Surface Antigen. Non-Reactive (Nonreactive)
[2019-08-12] MEDS: sodium polystyrene sulfonate 15 gm/60 mL Btl 30 GM PO (02:34)
--- NOTE | 2019-08-12 02:54 | PC.NURSE ---
At patients bedside as ACLS certified nurse. Blood pressure 151/89, Heart rate 125 ST, Respirations 25, O2 sat 97% on RA. No reports of pain, discomfort, or shortness of breath.
--- NOTE | 2019-08-12 03:10 | PC.NURSE ---
PT AT DIALYSIS, WILL BE RETURNING TO THE ED AFTER
--- NOTE | 2019-08-12 03:33 | PC.NURSE ---
0320 - Patient became diaphoretic and states I don't feel good . Blood pressure dropped to 66/48. Lowered head of bed, dialysis nurse gave 200ml NS and stopped UF. 0325 - SBP 100, patient states he is feeling better 0330 - Blood pressure 74/57, Dialysis nurse contacting Neurologist.
--- NOTE | 2019-08-12 03:46 | PC.NURSE ---
Blood pressure 91/57.
--- NOTE | 2019-08-12 04:58 | ECG_ITS ---
Measurements Intervals [place] Rate: 105 P: 47 MS: 150 QRS: -6 QRSD: 101 T: 146 QT: 350 QTc: 464 SINUS TACHYCARDIA WITH OCCASIONAL VENTRICULAR PREMATURE COMPLEXES LEFT VENTRICULAR HYPERTROPHY AND ST-T CHANGE [VOLTAGE CRITERIA PLUS ST/T ABNORMALITY] Compared to ECG 11/07/2017 09:50:08 Ventricular premature complex(es) now present ST (T wave) deviation now present Sinus rhythm no longer present Sinus arrhythmia no longer present Electronically Signed On 08-12-2019 15:29:41 LOADING DOCK HAND by Elias Hazel M.D. [id number]
--- NOTE | 2019-08-12 06:06 | PC.NURSE ---
PT BACK FROM DIALYSIS, SEE PAPER DOCUMENTATION
[2019-08-12] MEDS: cefTRIAXone 1,000 MG in sodium chloride 0.9% (plus) 50 ML 100 MG IV ×2 (06:19→14:51)
[2019-08-12 06:31] LABS: Basophils # 0.1 10^3/uL (0.0-0.1); Basophils % 0.4 %; Eosinophils % 0.2 %; Hematocrit 35.9 % (42.0-52.0); Lymphocytes # 0.6 10^3/uL (0.8-4.8); Lymphocytes % 3.6 %; Mean Corpuscular HGB Conc 30.6 g/dL (30.0-36.0); Mean Corpuscular Hemoglobin 30.6 pg (28.0-34.0); Mean Platelet Volume 10.2 fL (7.4-10.4); Monocytes # 1.2 10^3/uL (0.2-0.9); Monocytes % 7.5 %; Neutrophils # 14.1 10^3/uL (1.8-7.7); Neutrophils % 87.7 %; Nucleated Red Blood Cells % 0 %; Platelet Count 181 10^3/cmm (130-400); Red Blood Count 3.59 10^6/uL (4.1-5.3); Red Cell Distribution Width 14.5 % (12.1-15.1)
--- NOTE | 2019-08-12 06:40 | PM.CONSULT ---
Providers/Reason For Consult Consulting Physican/Specialty*: General Surgery Leo Degroot MD Reason for Consult*: Need for emergent hemodialysis catheter placement. Primary Care Provider: Maxi Borrego MD History of Present Illness History of Present Illness Laura Wu is a 74 year old male who presented to the emergency room early this morning after feeling poorly for at least 2 weeks. He was found to have a potassium over 9 and a creatinine over 15. I was called to come into the emergency room for urgent placement of a hemodialysis catheter for emergent dialysis. Review of Systems Const: Reports: fatigue Eyes: Denies: change in vision ENMT: Denies: painful swallowing Card: Denies: chest pain Resp: Reports: shortness of breath GI: Reports: nausea and diarrhea : Reports: difficulty urinating Skin/Breast: Reports: itching Neuro: Reports: weakness in extremities Psych: Reports: anxiety Endo: Reports: tired all the time Satnam/Lymph: Denies: easy bleeding All/Imm: Denies: throat swelling Meds/Allergies Home Medications and Allergies Home Medications Medication Instructions Recorded Confirmed Type No Known Home Medications 08/08/19 08/08/19 History Allergies Allergy/AdvReac Type Severity Reaction Status Date / Time No Known Allergies Allergy Unverified 08/11/19 18:28 Current Medications Current Medications Generic Name Dose Route Start Last Admin Trade Name Freq PRN Reason Stop Dose Admin Sodium Chloride 1,000 mls @ 100 mls/hr 08/11/19 23:00 08/11/19 23:51 Sodium Chloride 0.9% IV 100 mls/hr .Q10H MARIANA Administration PFSH Acute PFSH: Statuses (acute, chronic, etc) shown below reflect problem list status as previously entered and may not be historically accurate Medical History (Updated 08/12/19 @ 06:49 by Leo Degroot MD) Heart attack (Acute) Skin cancer (Acute) Melanoma on chest Social History Smoking and tobacco status: former smoker Quit status (tobacco): has quit using tobacco Second hand smoke exposure: No Smoking risk assessment/counseling performed?: No Alcohol intake: unknown Desire information about alcohol rehabilitation?: No Counseling given: No Desire information about substance/drug rehabilitation?: No Counseling given: No Adopted: No Caregiver/support person: No Lives independently: Yes Marital status: Single service: Yes Vitals/I&O/Wt Last Vital Signs Temp 98.4 F 08/11/19 18:22 Pulse 110 H 08/12/19 06:25 Resp 17 08/12/19 06:25 BP 117/64 08/12/19 06:25 Pulse Ox 97 08/12/19 06:25 Weight last 48 hrs Weight 228 lb Physical Exam Narrative: EXAM NARRATIVE: The patient was encountered in the emergency room. He appears to be feeling somewhat poorly but is in no acute distress. He seems somewhat restless. His pupils are equal. No carotid bruits are heard. Lungs are clear anteriorly. The heart seems regular but he is somewhat tachycardic. The abdomen is obese but is soft. The extremities may reveal some mild edema. Data Micro: Micro: Microbiology 08/11/19 23:46 Blood Culture - Pr eliminary Blood SPECIMEN [facility] JUSTA 08/11/19 23:40 Blood Culture - Pr eliminary Blood SPECIMEN [facility] A&P Assessment and plan (1) Acute renal failure: I discussed hemodialysis catheter placement with the patient. Risks of bleeding, vessel injury, infection, etc. were all gone over. Given his body habitus, his restlessness and his severe hyperkalemia, I told him that it may be advisable to consider a femoral placement initially, and then if there is an ongoing need for hemodialysis, converting to perhaps an internal jugular vein approach after he is more stable, so that his heart does not get aggravated by a J-wire, so we do not have to contend with a possible pneumothorax worsening his fragile condition, etc. at this time. He is agreeable to proceeding. I will make arrangements for urgent hemodialysis catheter placement in the emergency room. Status: Acute Code(s): N17.9 - Acute kidney failure, unspecified Consult Attestations Medical Necessity Statement: See admitting service's notation. Coding Level of Care Code Acute Ict Security Specialist for [facility] José Diagnoses Acute renal failure N17.9
[2019-08-12 06:46] LABS: Slide Review Slide Review Perform
--- NOTE | 2019-08-12 06:57 | PC.NURSE ---
Report received from Bean Matias RN. US was performed at bedside, pt now to CT.
[2019-08-12 07:01] LABS: Anion Gap 28.2 (5-19); Calcium 10.2 mg/Dl (8.8-10.2); Carbon Dioxide 14 mmol/L (22-29); Chloride 102 mmol/L (98-107); Glucose 157 mg/dL (74-106); Osmolality Calculated 292 mOsm/kg (285-295); Potassium 5.2 mmol/L (3.5-5.1); Sodium 139 mmol/L (136-145)
[2019-08-12 07:08] LABS: Blood Urea Nitrogen 98 mg/dL (8-23)
--- NOTE | 2019-08-12 07:11 | PC.NURSE ---
Pt returned from CT. Dr Borrego at bedside
[2019-08-12] MEDS: LORazepam 2 mg/mL INJ 1 mL 0.5 MG IVP (08:16)
--- NOTE | 2019-08-12 12:08 | PC.NURSE ---
Pt had incontinent episode, francisco care was provided, new chux, linens and gown provided to pt. Pt repositioned in bed and given fresh ice water. No needs at this time, call light in reach.
--- NOTE | 2019-08-12 14:07 | USCV_ITS ---
Laura Wu Age: 74 Gender: M : 1945 Exam Date: 08/12/2019 14:13 Ordering Phys: Maxi Borrego MD Technologist: Brissa Elizondo Exam Location: [facility] [place] Indication: Elevated troponin BP: 120 / 68 HR: 96 Rhythm: Sinus Technical Quality: Technically difficult study MEASUREMENTS (Male / Female) Normal Values 2D ECHO LV Diastolic Diameter PLAX 6.3 cm 4.2 - 5.9 / 3.9 - 5.3 cm LV Systolic Diameter PLAX 5.4 cm LV Chamber Size 4.7 cm IVS Diastolic Thickness 1.7 cm 0.6 - 1.0 / 0.6 - 0.9 cm IVS Systolic Thickness 1.6 cm LVPW Diastolic Thickness 1.3 cm 0.6 - 1.0 / 0.6 - 0.9 cm LVPW Systolic Thickness 1.5 cm RV Chamber Size 2.5 cm LVOT Diameter 2.2 cm LV Ejection Fraction 2D Teich 29.7 % LA Diameter 3.6 cm LA Width 2.8 cm LA Height 6.2 cm RA Width 2.4 cm RA Height 5.0 cm Aorta at Sinotubular Diameter 2.8 cm M-MODE LV Diastolic Diameter MM 6.6 cm 4.2 - 5.9 / 3.9 - 5.3 cm LV Systolic Diameter MM 5.9 cm LV Ejection Fraction MM Teich 22.0 % IVS Diastolic Thickness MM 1.4 cm 0.6 - 1.0 / 0.6 - 0.9 cm IVS Systolic Thickness MM 1.6 cm LVPW Diastolic Thickness MM 1.4 cm 0.6 - 1.0 / 0.6 - 0.9 cm LVPW Systolic Thickness MM 1.3 cm Aortic Annulus Diameter 3.9 cm LA Ao Ratio MM 0.9 MV E Point Septal Separation 2.2 cm DOPPLER AV Peak Velocity 144.0 cm/s LVOT Peak Velocity 117.0 cm/s AV Area Cont Eq vti 3.5 cm squared AV Area Cont Eq pk 3.1 cm squared MV Area PHT 4.7 cm squared Mitral E to A Ratio 1.1 MV E' Velocity 8.0 cm/s Mitral E to MV E' Ratio 10.7 Mitral E to LV E' Lateral Ratio 14.7 Mitral E to LV E' Septal Ratio 8.3 TR Peak Velocity 206.0 cm/s TR Peak Gradient 17.0 mmHg TV Peak E Velocity 44.0 cm/s Right Atrial Pressure 3.0 mmHg Pulmonary Artery Systolic Pressu 20.0 mmHg FINDINGS Left Ventricle Moderately dilated left ventricle with a diffuse hypokinesia. LV ejection fraction around 30% Right Ventricle The right ventricle is normal in size and function. Right Atrium The right atrium is normal in size. Left Atrium The left atrium is normal in size. Mitral Valve Trace to mild mitral valve regurgitation. Aortic Valve No gross abnormalities noted Tricuspid Valve No gross abnormalities noted Pulmonic Valve Not visualized well Pericardium Normal pericardium without effusion. Aorta Normal ascending aorta dimension. CONCLUSIONS Moderately dilated left ventricle with a diffuse hypokinesia. LV ejection fraction around 30%. Trace to mild mitral valve regurgitation. Normal RV size ejection fraction there is no pericardial effusion. There are no intracardiac masses. Compared to the study from 06/18/2017, there is significant drop in the LV ejection fraction-from 50% to 30% Dr Prerna Le MD [facility] (Electronically Signed) Final Date: 12 August 2019 19:59 S
--- NOTE | 2019-08-12 14:10 | PM.HP ---
Providers/Chief Complaint Admitting Physician: Maxi Borrego MD Primary Care Provider: Maxi Borrego MD Chief Complaint: poss bladder infection History of Present Illness Laura Wu is a 74 year old male who presented to the emergency room last night for increasing weakness. Apparently he states he has been feeling pretty well until about 2 weeks ago when he started having some diarrhea and vomiting. He had been to the urgent care and was started on Bactrim a few days ago. He took a couple doses of this but had some nausea with it and stopped. Patient has not been seen in the clinic since 2018. Renal functions have been normal at that time. When he arrived here he was found to be in acute renal failure. Patient received emergency dialysis last night for potassium above 9. He tolerated it well. Potassium back down to 5. He is now in ICU and he is feeling little bit better. Review of Systems Narrative: General: No chronic fevers or chronic weight changes. HEENT: No acute changes in vision. No acute hearing loss. No new difficulty swallowing. Heart: No new chest pain or recent issues with coronary disease. Lungs: No history of TB. No chronic lung disease. GI: No history of GI bleeding. No hepatitis. No chronic nausea or vomitting. Renal: No dysuria or frequency. No hematuria Neuro: No acute neurological changes or deficits. Musculoskeletal: No acutely worsening joint pain or swelling. Medications/Allergies Home Medications Medication Instructions Recorded Confirmed Last Taken Type bismuth subsalicylate See Rx Instructions .ROUTE .COMPLEX 08/12/19 08/12/19 08/09/19 History [Pepto-Bismol] Allergies Allergy/AdvReac Type Severity Reaction Status Date / Time No Known Allergies Allergy Unverified 08/11/19 18:28 PFSH Acute PFSH: Statuses (acute, chronic, etc) shown below reflect problem list status as previously entered and may not be historically accurate Medical History (Updated 08/12/19 @ 14:16 by Maxi Borrego MD) Skin cancer (Acute) 07/2017 large squamous cell skin cancer removed from right anterior chest wall. no metastasis. Surgical History (Updated 08/12/19 @ 14:16 by Maxi Borrego MD) S/P tonsillectomy (Acute) Family History (Updated 08/12/19 @ 14:16 by aMxi Borrego MD) Father Prostate cancer Social History Smoking and tobacco status: former smoker Quit status (tobacco): has quit using tobacco Second hand smoke exposure: No Smoking risk assessment/counseling performed?: No Alcohol intake: unknown Desire information about alcohol rehabilitation?: No Counseling given: No Desire information about substance/drug rehabilitation?: No Counseling given: No Adopted: No Caregiver/support person: No Lives independently: Yes Marital status: Single service: Yes Supplemental [facility] Information: Quit smoking in 2017. Had a 25-upet-trhe smoking history prior to that. 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 Lives alone. a few years ago. Vitals/I&O/Wt Last Vital Signs Temp 98.4 F 08/11/19 18:22 Pulse 93 08/12/19 14:02 Resp 24 H 08/12/19 14:02 BP 120/68 08/12/19 14:02 Pulse Ox 100 08/12/19 14:02 08/11/19 08/12/19 08/12/19 22:59 06:59 14:59 Intake Total 1000 / 1000 Balance 1000 / 1000 Weight last 48 hrs Weight 228 lb Physical Exam Narrative: EXAM NARRATIVE: General: No acute distress, Alert. Not well nourished. HEENT: PERRLA, EOMI. vision grossly normal. Throat clear. Neck: supple, no adenopathy. Heart: Regular rate and rhythm. No murmurs, rubs or gallops. Normal capillary refill. Lungs: Clear to auscultation. No wheezes, rhonchi or rales. Abdomen: Positive bowel sounds. Non-tender, non-distended. No hepatosplenomegaly. No gaurding. Extremities: No clubbing, cyanosis, or edema. Negative Shannan's. Data : 08/12/19 06:22 08/12/19 06:22 Micro: Microbiology 08/11/19 23:46 Blood Culture - Preliminary Blood SPECIMEN COLLECTED 08/11/19 23:40 Blood Culture - Preliminary Blood SPECIMEN COLLECTED A&P Assessment and plan (1) Acute renal failure: Patient is hospitalized for acute renal failure and severe hyperkalemia requiring emergency dialysis. This is undoubtedly been exacerbated by recent GI illness and UTI. However, for him to tolerate this significant of uremia and hyperkalemia it has to have been going on for a while. He had normal renal function at the beginning of 2018 which was the last time it was checked. Appreciate nephrology's consultation and will follow along with her recommendations. We will go ahead and do Rocephin for antibiotics and follow-up on urine culture. He did have a markedly elevated BNP and during his last hospitalization did have some reduced ejection fraction. We will repeat an echocardiogram while he is here. Continue on telemetry. Status: Acute Code(s): N17.9 - Acute kidney failure, unspecified Attestations Medical Necessity Statement*: Patient is 74-year-old gentleman with acute renal failure requiring dialysis and inpatient monitoring and treatment in the ICU setting. Coding Level of Care Code Acute Director Of Accounts Receivable for Noé Kumar Diagnoses Acute renal failure N17.9
[2019-08-12] MEDS: sodium chloride 0.9% 1,000 ML 100 ML IV ×2 (14:51→19:26)
--- NOTE | 2019-08-12 16:29 | P.PN_ITS ---
Subjective Subjective: Interval history: Received dialys early this AM - feels better Urine output > 1 liter in contreras - slightly bloody Medications: Reviewed: Yes Vitals/I&O/Wt Last Vital Signs Temp 98.4 F 08/11/19 18:22 Pulse 74 08/12/19 15:15 Resp 20 H 08/12/19 15:15 BP 122/65 08/12/19 15:15 Pulse Ox 98 08/12/19 15:15 08/12/19 08/12/19 08/12/19 06:59 14:59 22:59 Intake Total 1006.667 / 1006.667 Balance 1006.667 / 1006.667 Weight last 48 hrs Weight 103.419 kg Data : 08/12/19 06:22 08/12/19 06:22 Micro: Microbiology 08/11/19 23:46 Blood Culture - Preliminary Blood SPECIMEN COLLECTED 08/11/19 23:40 Blood Culture - Preliminary Blood SPECIMEN COLLECTED A&P Assessment and plan (1) Hydronephrosis: Status: Acute Code(s): N13.30 - Unspecified hydronephrosis (2) Metabolic acidosis: Status: Acute Code(s): E87.2 - Acidosis Attestations Medical Necessity Statement*: remains critically ill Coding Level of Care Code Acute Cured Meats Supervisor for Noé Kumar Diagnoses Hydronephrosis N13.30 Metabolic acidosis E87.2
[2019-08-12] MEDS: sodium bicarbonate 650 mg Tablet PO (20:51)
[2019-08-13] VITALS (24 sets, daily range): BP systolic 102–143; BP diastolic 54–75; PULSE 75–98; RESP 12–36; TEMP 36.8–37; O2SAT 86–99
[2019-08-13 04:43] LABS: Basophils % 0.5 %; Eosinophils # 0.3 10^3/uL (0.0-0.8); Eosinophils % 3.6 %; Hematocrit 29.1 % (42.0-52.0); Lymphocytes # 1.2 10^3/uL (0.8-4.8); Lymphocytes % 14.4 %; Mean Corpuscular HGB Conc 30.9 g/dL (30.0-36.0); Mean Corpuscular Hemoglobin 30.9 pg (28.0-34.0); Mean Platelet Volume 10.2 fL (7.4-10.4); Monocytes # 0.8 10^3/uL (0.2-0.9); Neutrophils # 6.2 10^3/uL (1.8-7.7); Neutrophils % 72.2 %; Nucleated Red Blood Cells % 0 %; Platelet Count 156 10^3/cmm (130-400); Red Blood Count 2.91 10^6/uL (4.1-5.3); Red Cell Distribution Width 14.9 % (12.1-15.1); White Blood Count 8.6 10^3/uL (4.0-10.0)
[2019-08-13] MEDS: sodium chloride 0.9% 1,000 ML 100 ML IV ×2 (04:53→17:24)
[2019-08-13 05:03] LABS: Alanine Aminotransferase 8 U/L (0-41); Albumin Level 3.7 g/dL (3.5-5.2); Alkaline Phosphatase 87 IU/L (40-130); Anion Gap 21.1 (5-19); Aspartate Amino Transferase 14 U/L (0-40); Blood Urea Nitrogen 77 mg/dL (8-23); Calcium 9.2 mg/dL (8.5-10.5); Carbon Dioxide 19 mmol/L (22-29); Chloride 105 mmol/L (98-107); Globulin 3.1 g/dL (1.3-4.6); Glucose 105 mg/dL (74-106); Potassium 5.1 mmol/L (3.5-5.1); Sodium 140 mmol/L (136-145); Total Bilirubin 0.2 mg/dL (0.15-1.2); Total Protein 6.8 g/dL (6.6-8.7)
[2019-08-13 05:14] LABS: Phosphorus 8.3 mg/dL (2.5-4.5)
--- NOTE | 2019-08-13 06:56 | US_ITS ---
WS: [id number] URINARY BLADDER ULTRASOUND HISTORY: follow up on CT, evaluate bladder mass. COMPARISON: 08/12/2019 Boo catheter in the urinary bladder. There is moderate distention of the urinary bladder and mild d iffuse wall thickening. There is a lobulated soft tissue mass of variable echogenicity beginning at t he base of the urinary bladder. Mass is contiguous with the prostate gland although there heterogeneo us echogenicity. Lobulated mass extends over length of at least 9.4 cm and transversely by 7.6 cm. Ma ss extends into the floor the urinary bladder and extends bilaterally. The ureters are not well visua lized but were obstructed on the recent CT. Bladder Wall Thickness: 0.5 cm. US/US bladder [id number] IMPRESSION: 1. Large lobulated, variable echogenicity mass in the base of the urinary blad oscar is contiguous with the prostate gland. I suspect this is probably all relat ed to the prostate gland. A contiguous bladder neoplasm could also be present. Recommend urological consultation and evaluation for possible prostate carcinom a. 2. Mild diffuse bladder wall thickening.
[2019-08-13 07:32] LABS: Prostate Specific Antigen 59.05 ng/mL (0-4)
--- NOTE | 2019-08-13 07:33 | P.CONIM_ITS ---
Providers/Reason For Consult Consulting Physican/Specialty*: Urology/Lundberg Reason for Consult*: Bilateral hydronephrosis Abnormal prostate on CT scan possibly locally invasive Attending Physician: Maxi Borrego MD Primary Care Provider: Maxi Borrego MD History of Present Illness History of Present Illness Laura Wu is a 74 year old male admitted for severe renal failure. CT scan of the abdomen and pelvis showed bilateral hydronephrosis with hydroureter down to the UVJ bilaterally. There was dramatic distortion of the prostate with large intravesically protruding soft tissue that appeared to be responsible for bilateral ureteral obstruction. This was a dramatic change from his CT scan in 2017. I reviewed both scans. He has been dialyzed. Currently stable. PSA drawn today was about 59. Boo catheter has been placed. Family reports that there was about 2 to 300 cc in his bladder only at the time the catheter was placed. Patient reports some gradually progressive bladder outlet obstructive type symptoms. Denies retention previously. He is unaware of having had a previous abnormal PSA or BIBI. Urinalysis on 08/08/2019 showed 3+ blood and only trace leukocyte Estrace. Urinalysis on admission this time showed 50-80 RBCs, 15-25 white cells, 2+ bacteria, 5-10 renal epithelial cells with no evidence of squamous epithelial cells. Nitrite negative. On admission his white count was 11.4, increased to 16.0 yesterday but 8.6 today. Creatinine on admission was 15.0 He also had some Bactrim for nausea vomiting and diarrhea apparently recently at the [facility] [place]. Did not continue that antibiotic. This afternoon on evaluation he had just completed dialysis. Thinks he is feeling better overall. Last blood pressure recorded was 102/59 and he was afebrile. O2 sat was 86 on 2 L nasal cannula. BIBI was less than adequate exam due to patient position but there is a hint of a firm prostate from what I could feel. Differential diagnosis includes bladder outlet obstruction although that is unlikely with 200 to 300 cc at time of catheter versus locally invasive process such as prostate cancer with trigone invasion and bilateral ureteral obstruction. Given the findings on the CT scan I think the latter is more likely. I have recommended a cystoscopy at bedside tomorrow morning to assess whether or not the ureteral orifices can be identified with the goal of possible retrograde stent placement. If there appears to be access to the ureter as we can place stents see if that helps improve his obstructive renal failure and can consider ultrasound and biopsy at the same time if digital rectal exam repeat confirms suspicious prostate. I reviewed all the above with the patient and his son. They expressed good understanding. Asked appropriate questions and seemed content with my explanations. Review of Systems Const: Reports: fatigue and malaise Eyes: Denies: change in vision or eye redness ENMT: Denies: bleeding gums Card: Denies: chest pain or palpitations Resp: Denies: productive cough or wheezing GI: Denies: coffee grounds in vomit or blood in stool : Reports: urinary frequency, urinary urgency, change in urine stream and blood in urine (Since catheter placement); Denies: flank pain Musc: Denies: neck pain or extremity pain Neuro: Denies: numbness in extremities, confusion or involuntary movements Psych: Denies: anxiety or irritability Endo: Reports: tired all the time Satnam/Lymph: Denies: easy bruising or enlarged lymph nodes All/Imm: Denies: hives Meds/Allergies Home Medications and Allergies Home Medications Medication Instructions Recorded Confirmed Type bismuth subsalicylate See Rx Instructions .ROUTE .COMPLEX 08/12/19 08/12/19 History [Pepto-Bismol] Allergies Allergy/AdvReac Type Severity Reaction Status Date / Time No Known Allergies Allergy Unverified 08/11/19 18:28 Current Medications Current Medications Generic Name Dose Route Start Last Admin Trade Name Freq PRN Reason Stop Dose Admin Ceftriaxone Sodium 1,000 mg/ 50 mls @ 100 mls/hr 08/12/19 14:15 08/12/19 15:21 Sodium Chloride IV Infused Q24H MARIANA Infusion Protocol Sodium Chloride 1,000 mls @ 100 mls/hr 08/13/19 05:00 08/13/19 04:53 Sodium Chloride 0.9% IV 100 mls/hr .Q10H MARIANA Administration Sodium Bicarbonate 650 mg 08/12/19 21:00 08/12/19 20:51 Sodium Bicarbonate PO 650 mg TID MARIANA Administration PFSH Acute PFSH: Statuses (acute, chronic, etc) shown below reflect problem list status as previously entered and may not be historically accurate Medical History (Updated 08/13/19 @ 17:10 by Yg Lundberg MD) Elevated PSA (Acute) Skin cancer (Acute) 07/2017 large squamous cell skin cancer removed from right anterior chest wall. no metastasis. Surgical History S/P tonsillectomy (Acute) Family History (Updated 08/12/19 @ 14:16 by Maxi Borrego MD) Father Prostate cancer Social History Smoking and tobacco status: former smoker Quit status (tobacco): has quit using tobacco Second hand smoke exposure: No Smoking risk assessment/counseling performed?: No Alcohol intake: unknown Desire information about alcohol rehabilitation?: No Counseling given: No Desire information about substance/drug rehabilitation?: No Counseling given: No Adopted: No Caregiver/support person: No Lives independently: Yes Marital status: Single service: Yes Vitals/I&O/Wt Last Vital Signs Temp 98.6 F 08/13/19 06:00 Pulse 90 08/13/19 06:00 Resp 16 08/13/19 06:00 BP 135/62 08/13/19 06:00 Pulse Ox 98 08/13/19 06:00 08/12/19 08/13/19 08/13/19 22:59 06:59 14:59 Intake Total 290 / 1296.667 Output Total 850 / 850 550 / 1400 Balance -560 / 446.667 -550 / -103.333 Weight last 48 hrs Weight 235 lb 8 oz Weight 228 lb Physical Exam Const: COMMON NORMALS: no apparent distress, average body habitus and oriented x3; negative for healthy appearing HENMT: COMMON NORMALS: normocephalic, head/scalp atraumatic and hearing grossly normal bilaterally HEAD & SCALP: normocephalic and atraumatic Resp: EFFORT & INSPECTION: Yes able to speak in complete sentences, No tachypneic and No respiratory distress Cardio: COMMON NORMALS: regular rhythm RATE: tachycardic RHYTHM: regular rhythm GI: COMMON NORMALS: soft to palpation, non-tender and no masses PALPATION: Yes soft : COMMON NORMALS: Yes testes normal, Yes scrotum normal, Yes no scrotal swel ling and Yes no hernias present PENIS: normal penis MEATUS: meatus normal and other (Boo catheter in place draining serosanguineous urine) Extremity: NARRATIVE EXTREMITY EXAM: Dialysis catheter in right femoral vein Neuro: COMMON NORMALS: oriented x3 SPEECH: speech normal Psych: COMMON NORMALS: thought process normal and cooperative ATTITUDE: Yes calm and Yes engaged THOUGHT PROCESS: normal thought process Skin: COMMON NORMALS: no rashes or lesions noted GENERAL SKIN EXAM: no rashes or lesions noted Data Micro: Micro: Microbiology 08/11/19 23:40 Blood Culture - Pr eliminary Blood NEGATIVE TO GRACIE E 08/11/19 23:46 Blood Culture - Pr eliminary Blood NEGATIVE TO GRACIE E A&P Assessment and plan (1) Hydronephrosis: Plan flexible bedside cystoscopy tomorrow morning to assess for access to the ureteral orifices in retrograde fashion. May require percutaneous nephrostomies if evidence of locally invasive process into the trigone Status: Acute Code(s): N13.30 - Unspecified hydronephrosis (2) Elevated PSA: To feel due to position. PSA of 59. CT scan findings suspicious for prostate cancer with local invasive process at the bladder neck. We will consider biopsy for pathologic confirmation Status: Acute Code(s): R97.20 - Elevated prostate specific antigen [PSA] (3) Acute renal failure: Obstructive uropathy from distal ureteral obstruction at the level of trigone Status: Acute Code(s): N17.9 - Acute kidney failure, unspecified Consult Attestations Medical Necessity Statement: See attending Coding Level of Care Code Acute Digital Marketing Analyst for Noé Kumar Exam Problem Focused Diagnoses Hydronephrosis N13.30 Elevated PSA R97.20 Acute renal failure N17.9
--- NOTE | 2019-08-13 07:39 | P.PN_ITS ---
Subjective Subjective: Interval history: Feeling a little better. No fevers. No chest pain or sob. Some hematuria. Vitals/I&O/Wt Last Vital Signs Temp 98.6 F 08/13/19 06:00 Pulse 90 08/13/19 06:00 Resp 16 08/13/19 06:00 BP 135/62 08/13/19 06:00 Pulse Ox 98 08/13/19 06:00 08/12/19 08/13/19 08/13/19 22:59 06:59 14:59 Intake Total 290 / 1296.667 Output Total 850 / 1400 550 / 1400 Balance -560 / -103.333 -550 / -103.333 Weight last 48 hrs Weight 235 lb 8 oz Weight 228 lb Physical Exam Narrative: EXAM NARRATIVE: General: No acute distress, Alert. Well nourished. Heart: Regular rate and rhythm. No murmurs, rubs or gallops. Normal capillary refill. Lungs: Clear to auscultation. No wheezes, rhonchi or rales. Abdomen: Positive bowel sounds. Non-tender, non-distended. No hepatosplenomegaly. No gaurding. Extremities: No clubbing, cyanosis, or edema. Negative Shannan's Data : 08/13/19 04:15 08/13/19 04:15 Micro: Microbiology 08/11/19 23:40 Blood Culture - Preliminary Blood NEGATIVE TO DATE 08/11/19 23:46 Blood Culture - Preliminary Blood NEGATIVE TO DATE A&P Assessment and plan (1) Acute renal failure: Still elevated Cr. fluids and dialysis per nephrology Status: Acute Code(s): N17.9 - Acute kidney failure, unspecified (2) Hydronephrosis: Reviewed with Dr. Lundberg. Awaiting PSA this morning. He will consult. Suspecting prostate cancer. Status: Acute Code(s): N13.30 - Unspecified hydronephrosis (3) Systolic congestive heart failure: start coreg. Status: Acute Code(s): I50.20 - Unspecified systolic (congestive) heart failure Attestations Medical Necessity Statement*: 74 yo with acute renal failure requiring continued inpatient treatment Coding Level of Care Code Acute Relocation Services Specialist for [facility] Diagnoses Acute renal failure N17.9 Hydronephrosis N13.30 Systolic congestive heart failure I50.20
[2019-08-13] MEDS: carvedilol 3.125 mg Tablet PO ×2 (09:09→17:24)
[2019-08-13] MEDS: sodium bicarbonate 650 mg Tablet PO ×3 (09:09→22:11)
--- NOTE | 2019-08-13 13:21 | PC.CHAP ---
Pastoral Care Encounter/Spiritual Assessment Type of Contact [] Declined parking meter mechanic visit [] Patient/Family/Request visit [] Outpatient visit [] Follow-up visit [] Physician referral [] Code/Alert [x] Routine visit [] Staff referral [] Actively dying [] Patient sleeping [] Family support [] [] Out of room [] Palliative care [] [] Receiving care in room [] Pre-surgical visit [] Trauma [] Long length of stay [x] ICU visit [] Other: Relational/Emotional Strength [x] Patient feels connected with others/family/visitors/staff [] Distress [] Loneliness/isolation [] Abandonment Spirituality of Patient [] Person of Zunilda [] Attends Jew of their Zunilda [] Believes in Prayer [] Reads Bible or Yazidi materials [x] There are Spiritual issues to be addressed Airdrop Systems Technician Interventions [x] Prayer [x] Active listening [x] Non-anxious presence [x] Spiritual/emotional support [] Crisis/trauma care [x] Spiritual counseling [] Bereavement support [] Provided bereavement packet [] Provided Bible/devotional materials [] Provided toy/stuffed animal, coloring book to patient or family member [] Completed spiritual assessment [] Provided Communion [] Anointing/[place] [] Salvation [] Other: Impact on Illness or Injury [] Angry [] Fearful [] Anxious [] Often cries [] Exhaustion [] Unable to work [] Unable to attend advent [] Unable to walk/stand [] Unable to read [] Unable to drive [] Unable to eat/drink [] Unable to sleep [] Unable to be with family [x] Other: N/A Summary Time spent with patient 3-minutes
--- NOTE | 2019-08-13 15:15 | P.PN_ITS ---
Subjective Subjective: Interval history: no complaints Medications: Reviewed: Yes Vitals/I&O/Wt Last Vital Signs Temp 98.6 F 08/13/19 06:00 Pulse 91 08/13/19 14:00 Resp 32 H 08/13/19 14:00 BP 102/59 08/13/19 14:00 Pulse Ox 86 L 08/13/19 14:00 08/13/19 08/13/19 08/13/19 06:59 14:59 22:59 Intake Total 250 / 250 Output Total 550 / 1400 600 / 600 Balance -550 / -103.333 -350 / -350 Weight last 48 hrs Weight 106.821 kg Weight 103.419 kg Data : 08/13/19 04:15 08/13/19 04:15 Micro: Microbiology 08/11/19 23:45 Urine Culture - Preliminary Urine,Clean Catch 08/11/19 23:40 Blood Culture - Preliminary Blood NEGATIVE TO DATE 08/11/19 23:46 Blood Culture - Preliminary Blood NEGATIVE TO DATE A&P Additional A&P Information Impression: Acute kidney injury due to hydronephrosis Likely prostate cancer hyperkalemia resolved after hemodialysis metabolic acidosis improving Plan: Hd today, will not remove fluid - BP low, no edema continue contreras - awaiting urology recommendation daily labs Attestations Medical Necessity Statement*: requires continued hospialization for acute kidney injury, new cancer diagnosis Coding Level of Care Code Acute Interventional Cardiologist for Noé Kumar
[2019-08-13] MEDS: cefTRIAXone 1,000 MG in sodium chloride 0.9% (plus) 50 ML 100 MG IV (17:24)
[2019-08-14] VITALS (17 sets, daily range): BP systolic 104–139; BP diastolic 54–78; PULSE 73–82; RESP 13–43; TEMP 36.6–37.1; O2SAT 95–100
[2019-08-14] MEDS: sodium chloride 0.9% 1,000 ML 100 ML IV (04:55)
[2019-08-14 05:55] LABS: Basophils % 0.4 %; Eosinophils # 0.4 10^3/uL (0.0-0.8); Eosinophils % 4.3 %; Hematocrit 26.2 % (42.0-52.0); Hemoglobin 7.9 g/dL (11.7-16.6); Lymphocytes % 12.9 %; Mean Corpuscular HGB Conc 30.2 g/dL (30.0-36.0); Mean Corpuscular Hemoglobin 30.6 pg (28.0-34.0); Mean Corpuscular Volume 101.6 fL (80-94); Mean Platelet Volume 10.5 fL (7.4-10.4); Monocytes # 0.8 10^3/uL (0.2-0.9); Monocytes % 9.9 %; Neutrophils # 5.8 10^3/uL (1.8-7.7); Nucleated Red Blood Cells % 0 %; Platelet Count 128 10^3/cmm (130-400); Red Blood Count 2.58 10^6/uL (4.1-5.3); Red Cell Distribution Width 14.4 % (12.1-15.1); White Blood Count 8.1 10^3/uL (4.0-10.0)
[2019-08-14 06:14] LABS: Alanine Aminotransferase 8 U/L (0-41); Albumin Level 3.2 g/dL (3.5-5.2); Alkaline Phosphatase 77 IU/L (40-130); Anion Gap 17.3 (5-19); Aspartate Amino Transferase 12 U/L (0-40); Blood Urea Nitrogen 52 mg/dL (8-23); Calcium 8.5 mg/dL (8.5-10.5); Carbon Dioxide 23 mmol/L (22-29); Chloride 105 mmol/L (98-107); Globulin 3.2 g/dL (1.3-4.6); Glucose 133 mg/dL (74-106); Magnesium 1.9 mg/dL (1.7-2.3); Phosphorus 5.1 mg/dL (2.5-4.5); Potassium 4.3 mmol/L (3.5-5.1); Sodium 141 mmol/L (136-145); Total Bilirubin 0.2 mg/dL (0.15-1.2); Total Protein 6.4 g/dL (6.6-8.7)
--- NOTE | 2019-08-14 06:24 | PM.PN ---
Subjective Subjective: Interval history: Patient is feeling okay today. No chest pain or shortness of breath. No fevers or chills. Still having significant blood through the catheter. No black tarry stools. Medications: Reviewed: Yes Vitals/I&O/Wt Last Vital Signs Temp 97.8 F 08/14/19 04:00 Pulse 74 08/14/19 06:00 Resp 22 H 08/14/19 06:00 BP 124/58 08/14/19 06:00 Pulse Ox 95 08/14/19 06:00 08/13/19 08/13/19 08/14/19 14:59 22:59 06:59 Intake Total 1250 / 3100 450 / 3100 1400 / 3100 Output Total 600 / 1175 375 / 1175 200 / 1175 Balance 650 / 1925 75 / 1925 1200 / 1925 Weight last 48 hrs Weight 238 lb 6.4 oz Weight 235 lb 8 oz Physical Exam Narrative: EXAM NARRATIVE: General: No acute distress, Alert. Well nourished. Heart: Regular rate and rhythm. No murmurs, rubs or gallops. Normal capillary refill. Lungs: Clear to auscultation. No wheezes, rhonchi or rales. Abdomen: Positive bowel sounds. Non-tender, non-distended. No hepatosplenomegaly. No gaurding. Extremities: No clubbing, cyanosis, or edema. Negative Shannan's Data : 08/14/19 05:22 08/14/19 05:22 Micro: Microbiology 08/11/19 23:45 Urine Culture - Preliminary Urine,Clean Catch 08/11/19 23:40 Blood Culture - Preliminary Blood NEGATIVE TO DATE 08/11/19 23:46 Blood Culture - Preliminary Blood NEGATIVE TO DATE A&P Assessment and plan (1) Acute renal failure: Still elevated Cr. fluids and dialysis per nephrology We probably need the inguinal dialysis catheter addressed today. Determine what long-term strategy we have. Patient needs to be able to get up and ambulate at some point. Consider transfer to the floor later today depending on nephrology's visit this morning. Status: Acute Code(s): N17.9 - Acute kidney failure, unspecified (2) Hydronephrosis: Appreciate Dr. Lundberg's consultation. Proceed with scope and biopsies today. Suspecting prostate cancer with elevated PSA. Status: Acute Code(s): N13.30 - Unspecified hydronephrosis (3) Systolic congestive heart failure: Continue Coreg. Status: Acute Code(s): I50.20 - Unspecified systolic (congestive) heart failure (4) Anemia: Not sure if this is related to blood loss. He is having some hematuria. No evidence of GI bleed at this point. May be secondary to his renal failure. Will start iron supplementation. Continue to monitor. Repeat CBC this afternoon. Type and screen. Check Hemoccult stools. Start Protonix for GI prophylaxis. Consider stopping heparin but will await nephrology for this. Status: Acute Code(s): D64.9 - Anemia, unspecified Attestations Medical Necessity Statement*: Patient is 74-year-old gentleman with acute renal failure and likely obstructive nephropathy from advanced prostate cancer requiring continued inpatient treatment and dialysis. Coding Level of Care Code Acute Packaging Technician for Noé Kumar Diagnoses Acute renal failure N17.9 Hydronephrosis N13.30 Systolic congestive heart failure I50.20 Anemia D64.9
--- NOTE | 2019-08-14 08:00 | P.PN_ITS ---
Subjective Subjective: Interval history: Fatigue. Did not sleep well last night. No significant change in catheter function. Has had a mild amount of hematuria. Denies flank pain. No fever or chills. No nausea vomiting. No chest pain or shortness of breath PROCEDURE NOTE: BEDSIDE FLEXIBLE CYSTOSCOPY: 2% lidocaine jelly used for anesthesia. Prepped and draped in usual sterile fashion. ACMI flexible cystoscope advanced under direct vision into the urethra through the prostate into the bladder. Large posterior bladder neck lesion with papillary changes consistent with TCCA. Could not visualize either orifice. Mild bleeding from the friable tumor. Procedure completed Boo catheter placed. Tolerated procedure well without complication I had a detailed review of findings with the patient. We discussed the likelihood of muscle invasive TCCA and briefly reviewed some of the treatment options pending work-up for staging etc. The most critically important short-term issue though is his renal function and given the findings on cystoscopy and CT scan I believe BILATERAL PERCUTANEOUS NEPHROSTOMY TUBES make the most sense right now in order to improve metabolic function before considering intervention/resection/definitive therapy for the bladder mass. If it is muscle invasive with no evidence of metastatic disease chemotherapy is considered a standard of care preoperatively for cystectomy and his ability to tolerate that obviously would be much better with improved renal function. Would recommend consideration for transfer to hospital with capability of interventional radiology for percutaneous nephrostomy tube placement and then follow-up next week if possible for next step including TURBT etc. There is still the possibility that this could be a poorly differentiated prostate cancer but that is felt to be unlikely. Obtaining tissue will help close that loop Vitals/I&O/Wt Last Vital Signs Temp 97.8 F 08/14/19 04:00 Pulse 74 08/14/19 06:00 Resp 22 H 08/14/19 06:00 BP 124/58 08/14/19 06:00 Pulse Ox 95 08/14/19 06:00 08/13/19 08/14/19 08/14/19 22:59 06:59 14:59 Intake Total 450 / 1700 1400 / 3100 Output Total 375 / 975 200 / 1175 Balance 75 / 725 1200 / 1925 Weight last 48 hrs Weight 238 lb 6.4 oz Weight 235 lb 8 oz Physical Exam Const: COMMON NORMALS: no apparent distress and oriented x3 GENERAL APPEARANCE: cooperative Eye: COMMON NORMALS: no scleral icterus Lymph: LYMPHATIC: no lymphadenopathy noted Resp: COMMON NORMALS: normal respiratory effort EFFORT & INSPECTION: Yes able to speak in complete sentences, No tachypneic and No respiratory distress Cardio: COMMON NORMALS: regular rhythm RHYTHM: regular rhythm OTHER: No severe edema : COMMON NORMALS: Yes external exam normal BLADDER/KIDNEY EXAM: Yes catheter in place Extremity: NARRATIVE EXTREMITY EXAM: Good range of motion, no cyanosis Neuro: COMMON NORMALS: oriented x3 and no focal motor deficits Psych: COMMON NORMALS: mental status grossly normal and cooperative ATTITUDE: Yes calm and Yes engaged Skin: OTHER: No jaundice. 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 Flexible cystoscopy this morning revealed a papillary lesion more consistent with TCCA of the bladder likely muscle invasive based on location and bilateral ureteral orifice obstruction. Orifices could not be identified on flexible cystoscopy due to the mass. It is reasonable to consider TURBT for diagnosis and staging (muscle invasive or not) and potentially to gain access to his upper tracts via ureteral stenting, retrograde fashion. Given the renal failure though with bilateral ureteral obstruction I think it makes more sense to consider bilateral percutaneous nephrostomy tubes, improvement in metabolic state, and TURBT with staging in short order following that improvement. That sequence of treatment will allow a more conventional approach to deciding what to do with the bladder cancer including extirpative therapy or potentially TUR only if noninvasive. Status: Acute Code(s): N32.89 - Other specified disorders of bladder (2) Hydronephrosis: Secondary to distal ureteral obstruction which appears as of today (08/14/2019) to be related to a papillary mass at the bladder neck extending onto the trigone. This likely represents muscle invasive TCCA but that is yet to be determined. Status: Chronic Code(s): N13.30 - Unspecified hydronephrosis (3) Elevated PSA: Prostate was not grossly abnormal but was firm. 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 Status: Acute Code(s): R97.20 - Elevated prostate specific antigen [PSA] (4) Bilateral ureteral obstruction: Obstructive uropathy secondary to distal ureteral obstruction from invasive mass at the bladder neck most consistent cystoscopically with TCCA of the bladder. Status: Acute Code(s): N13.5 - Crossing vessel and stricture of ureter without hydronephrosis Attestations Medical Necessity Statement*: See attending Coding Level of Care Code Acute Engine Inspector for Chg Fwd History Detailed Exam Detailed Medical Decision Making High Complexity Diagnoses Mass of urinary bladder N32.89 Hydronephrosis N13.30 Elevated PSA R97.20 Bilateral ureteral obstruction N13.5 Time Spent (min) 65
[2019-08-14] MEDS: carvedilol 3.125 mg Tablet PO (09:04)
[2019-08-14] MEDS: pantoprazole 40 mg SDV IVP (09:04)
[2019-08-14] MEDS: ferrous sulfate EC 325 mg Tablet PO ×2 (09:04→11:57)
[2019-08-14] MEDS: sodium bicarbonate 650 mg Tablet PO (09:04)
--- NOTE | 2019-08-14 12:01 | PM.DCS ---
Discharge Providers Date of Admission: 08/12/19 08:24 Date of Discharge: 08/14/19 Attending Provider at Admission: Maxi Borrego MD Attending Provider at Discharge: Maxi Borrego MD Primary Care Provider: Maxi Borrego MD Diagnoses at Discharge Discharge Diagnosis (1) Mass of urinary bladder: Status: Acute (2) Hydronephrosis: Status: Chronic Problem details: Bilateral distal ureteral obstruction with evidence of obstructing mass at bladder neck. Differential diagnosis invasive process related to the prostate (3) Elevated PSA: Status: Acute (4) Bilateral ureteral obstruction: Status: Acute Reason for Visit Reason for Visit: Reason For Visit: poss bladder infection Hospital Course Hospital Course: Patient was admitted to the hospital after coming in with a two-week history of some diarrhea and nausea and vomiting.. He had a GI bug. He is feeling very weak. He walked in. He was found to be in acute renal failure with a BUN of 100 and creatinine of 15 his potassium was above 9. Patient emergency dialysis performed. His vitals were stable and he had no EKG changes associated with this. Had a questionable history of LA in the past so echocardiogram was performed. This did show a reduced ejection fraction of about 35%. No significant wall motion defects to suggest prior LA though. Carvedilol was started for this. Patient's potassium rapidly corrected. Is 4.2 on the time of discharge. In the process of evaluating this CT scan was done of the abdomen and pelvis. He was found to have a severe obstructive nephropathy worse on the right. This looked like it was the result of a mass in the bladder prostate area. Dr. Lundberg our urologist was consulted and he performed a cystoscopy which revealed a significantly advanced bladder cancer. Biopsies were performed. He was unable to get stents placed. Patient was also noted to have a hemoglobin down to 7.6 today. No obvious GI bleeding noted. He has had some significant stools with Kayexalate but no black tarry stools. He has had some hematuria but not enough to explain his hemoglobin drop. Overall his vitals have been stable. He is alert and involved in conversation. Discussed with him and his family his current diagnosis. Discussed that he is in need of nephrostomy tubes to help drain the kidney and the sooner we can do this the better. They are in agreement with it. Made contact with the hospitalist on-call at [facility] and they have accepted him in transfer. Discharge Data Data Completed and Pending: Completed Studies During Hospitalization Category Date Time Status CT abdomen pelvis wo con [id number] Urge nt Cat Scan 08/12/19 01:48 Completed XR chest 1V jane ble [id number] Stat Exams 08/11/19 22:57 Completed CV echo complete* [id number] Routine Ultrasound 08/12/19 14:07 Completed US bladder [id number] Routine Ultrasound 08/13/19 06:56 Completed US renal BI* [id number] Urgent Ultrasound 08/12/19 01:28 Completed Pending at discharge Category Date Time Status Anti Double Stran ded DNA AB Routine Lab 08/12/19 02:03 Received Anti-Neutrophil C utoplasmic AB Rout ine Lab 08/12/19 02:03 Received Anti-Nuclear Anti body Screen Routin e Lab 08/12/19 02:03 Received Anti-streptolysin O Routine Lab 08/12/19 02:03 Received Blood Culture Sta t Lab 08/11/19 23:46 Results Complete Blood Co unt w/Auto AM LABS Lab 08/15/19 04:00 Ordered Complete Blood Co unt w/Auto Routine Lab 08/14/19 16:00 Ordered Comprehensive Met abolic Panel AM LA BS Lab 08/15/19 04:00 Ordered DNA Antibody Rout ine Lab 08/12/19 01:30 Received Magnesium AM LABS Lab 08/15/19 04:00 Ordered Phosphorus AM LAB S Lab 08/15/19 04:00 Ordered Labs from last 24 hours 08/14/19 08/14/19 08/14/19 06:52 05:22 05:22 WBC 8.1 RBC 2.58 L Hgb 7.9 L Hct 26.2 L MCV 101.6 H MCH 30.6 MCHC 30.2 RDW 14.4 Plt Count 128 L MPV 10.5 H Neut % (Auto) 72.0 Lymph % (Auto) 12.9 [place] % (Auto) 9.9 Eos % (Auto) 4.3 Baso % (Auto) 0.4 Neut # (Auto) 5.8 Lymph # (Auto) 1.0 [place] # (Auto) 0.8 Eos # (Auto) 0.4 Baso # (Auto) 0.0 Nucleated RBC % (a uto) 0 Nucleated RBCs # 0.0 Sodium 141 Potassium 4.3 Chloride 105 Carbon Dioxide 23 Anion Gap 17.3 BUN 52 H Creatinine 9.4 H* Glucose 133 H Calcium 8.5 Phosphorus 5.1 H Magnesium 1.9 Total Bilirubin 0.2 AST 12 ALT 8 Alkaline Phosphata se 77 Total Protein 6.4 L Albumin 3.2 L Globulin 3.2 Blood Type A Positive Antibody Screen Negative Vitals: Last Vital Signs Temp 98.8 F 08/14/19 08:00 Pulse 74 08/14/19 11:00 Resp 30 H 08/14/19 11:00 BP 139/78 08/14/19 11:00 Pulse Ox 99 08/14/19 11:00 Discharge Plan Discharge Patient Disposition: Xfer Other Condition: Stable Prescriptions: Discontinued sulfamethoxazole-trimethoprim 800-160 mg tablet 1 tab PO BID 7 Days Qty: 14 RF: 0 Pepto-Bismol 262 mg/15 mL Suspension See Rx Instructions .ROUTE .COMPLEX RF: 0 Discharge Orders: Discharge Order (Routine); Ordered 08/14/19 Ordered By: Maxi Borrego Activity Restrictions/Additional Instructions: Discharge to [facility] for further treatment Follow-up with Dr. Borrego as needed Discharge Attestations Time Spent in Discharge Care*: critical care time Critical Care Time (min): 90 Quality Metrics Clinical Quality Measures During this hospital stay, did patient experience: None Coding Level of Care Code Acute Market Risk Manager for Chg Fwd Diagnoses Mass of urinary bladder N32.89 Hydronephrosis N13.30 Elevated PSA R97.20 Bilateral ureteral obstruction N13.5
--- NOTE | 2019-08-14 14:50 | PC.NURSE ---
Report called to [facility]. Patient's chart given to EMS transport. Patient loaded on gurney and escorted out of unit via EMS transport. Family notified. [facility] notified.
[2019-08-17 14:16] LABS: DNA Antibody 2
== END 2019-08-14 14:55 | disposition short-term general hospital (02) | DRG 682 ==
LOC: ER 08-12 08:22 → ICU 08-12 12:58
PROVIDERS: Emergency Medicine; Internal Medicine Nephrology; Admitting Provider Family Medicine; Emergency Provider Family Medicine; Family Provider Family Medicine; PCP Family Medicine; Visit Provider Family Medicine
DX: N17.9 Acute kidney failure, unspecified (principal); I50.21 Acute systolic (congestive) heart failure; E87.2 Acidosis; N13.30 Unspecified hydronephrosis; N32.89 Other specified disorders of bladder; N13.5 Crossing vessel and stricture of ureter without hydronephrosis; Z85.828 Personal history of other malignant neoplasm of skin; Z87.891 Personal history of nicotine dependence; E87.5 Hyperkalemia
CPT/HCPCS: 12345; 36415; 36569; 71045; 74176; 76770; 76857; 80048; 80053; 81001; 82274; 83516; 83605; 83735; 83880; 84100; 84153; 84484; 85025; 86038; 86060; 86225; 86706; 86803; 86850; 86900; 87040; 87086; 87340; 87804; 90935; 93005; 93306; 94640; 96360; 96361; 96372; 96374; 99284; A4216; C1752; C9113; J0610; J0696; J1644; J1815; J1940; J2060; J7030; J7611; J7799; Q3014

== ENCOUNTER 2019-11-24 16:07 | Inpatient (IN) | payer MEDICARE, MEDICAID, SELFPAY ==
[2019-11-24] VITALS (10 sets, daily range): BP systolic 105–130; BP diastolic 69–94; PULSE 72–105; RESP 16–20; TEMP 36.2–36.4; O2SAT 96–100; BMI 26.2
--- NOTE | 2019-11-24 16:18 | W.ED.WEAKNES ---
HPI - Weakness General: Chief complaint: Weakness Stated complaint: WEAKNESS Time Seen by Provider: 11/24/19 16:09 History of Present Illness: HPI Narrative: 74 yo male resents with complaint of just not feeling well last couple days has had a poor appetite he feels he has been very constipated. He is not eating as much but he states he is drinking quite a bit. He is not any had a hematochezia he says is been several days since he had a bowel movement he denies nausea or vomiting denies abdominal pain or chest pain. He states he generally feels weak he denies any dizziness denies any focal neurologic symptoms no difficulty speaking swallowing walking or weakness that is lateralizing. Denies any shortness of breath or chest pain no fever sweats or chills no flank pain. Patient does have a diverting urostomy was placed because he states of prostate cancer at [facility] a couple of years ago. Beyond the constipation and weakness, is difficult to get him to give us a specific physical complaint Associated symptoms: Denies chest pain, chills, dark stools, dysuria, fever(s), nausea or vomiting Review of Systems Const: Denies: fever, chills, body aches, change in appetite, fatigue or malaise ENMT: Denies: throat pain, ear pain, nasal discharge or nasal congestion Card: Denies: chest pain, edema, shortness of breath on exertion or shortness of breath when lying down Resp: Denies: shortness of breath, productive cough or non-productive cough GI: Denies: abdominal pain, nausea, vomiting, vomiting blood, coffee grounds in vomit, diarrhea, constipation, bloating, blood in stool or black tarry stool : Denies: flank pain, painful urination, urinary frequency or urinary urgency Skin/Breast: Denies: rash or itching PFSH ED PFSH: Medical History Elevated PSA Skin cancer 07/2017 large squamous cell skin cancer removed from right anterior chest wall. no metastasis. Squamous cell carcinoma of skin of chest Surgical History History of urostomy S/P tonsillectomy Family History Father Prostate cancer Social History Smoking and tobacco status: former smoker Quit status (tobacco): has quit using tobacco Alcohol intake: unknown Lives independently: Yes Marital status: Single service: Yes Physical Exam Const: GENERAL APPEARANCE: cooperative ORIENTATION/CONSCIOUSNESS: Yes awake, Yes oriented to person, Yes oriented to place and Yes oriented to time HENMT: COMMON NORMALS: normocephalic, head/scalp atraumatic, hearing grossly normal bilaterally, external ears normal, EAC's normal, TM's normal bilaterally, nasal mucous membranes and turbinates normal, moist oral mucous membranes and oropharynx normal HEAD & SCALP: normocephalic and atraumatic NOSE: nasal mucous membranes and turbinates normal EXTERNAL EAR: Yes external ears normal EXTERNAL AUDITORY CANAL: EAC's normal TYMPANIC MEMBRANE: TM's normal bilaterally Eye: COMMON NORMALS: PERRL, EOMs intact bilaterally, conjunctivae normal and no scleral icterus CONJUNCTIVA: Yes conjunctivae normal PUPIL: Yes PERRL Neck/C-Spine: COMMON NORMALS: full ROM, no lymphadenopathy, supple and no JVD Lymph: LYMPHATIC: no lymphadenopathy noted and no lymphedema noted Resp: COMMON NORMALS: normal respiratory effort, no retractions, no use of accessory muscles and clear to auscultation bilaterally AUSCULTATION: clear to auscultation bilaterally Cardio: COMMON NORMALS: no JVD, regular rate, regular rhythm and no murmurs RATE: regular rate RHYTHM: regular rhythm GI: COMMON NORMALS: soft to palpation and no hepatosplenomegaly AUSCULTATION: Yes normoactive bowel sounds PALPATION: Yes soft, No tender, No guarding and Yes no hepatosplenomegaly Extremity: COMMON NORMALS: normal to inspection, normal capillary refill, no clubbing, cyanosis or edema and no calf tenderness GENERAL: Yes edema Neuro: SENSORIUM/ORIENTATION: Yes oriented to person, Yes oriented to place and Yes oriented to time Skin: COMMON NORMALS: no rashes or lesions noted GENERAL SKIN EXAM: no rashes or lesions noted Course Vital Signs: Vital signs: Vital Signs Temperature 98.3 F 11/26/19 10:51 Pulse Rate 64 11/26/19 10:51 Respiratory Rate 22 H 11/26/19 10:51 Blood Pressure 110/64 11/26/19 10:51 Pulse Oximetry 95 11/26/19 10:51 MDM - Weakness MDM Narrative: Medical decision making narrative: Admit for IV fluids and treatment of cystitis. Monitor renal function discussed Dr. Geller. Lab Data: Attestation: I reviewed the patient's lab results. Labs: Lab Results 11/24/19 11/24/19 11/24/19 Range/Units 16:55 16:55 17:28 WBC 15.6 H (4.0-10.0) 10^3/ uL RBC 4.83 (4.1-5.3) 10^6/u L Hgb 15.2 (11.7-16.6) g/dL Hct 51.4 (42.0-52.0) % MCV 106.4 H (80-94) fL MCH 31.5 (28.0-34.0) pg MCHC 29.6 L (30.0-36.0) g/dL RDW 16.7 H (12.1-15.1) % Plt Count 388 (130-400) 10^3/c mm MPV 10.3 (7.4-10.4) fL Neut % (Auto) 83.9 % Lymph % (Auto) 7.6 % [place] % (Auto) 6.7 % Eos % (Auto) 0.4 % Baso % (Auto) 0.6 % Neut # (Auto) 13.1 H (1.8-7.7) 10^3/u L Lymph # (Auto) 1.2 (0.8-4.8) 10^3/u L [place] # (Auto) 1.1 H (0.2-0.9) 10^3/u L Eos # (Auto) 0.1 (0.0-0.8) 10^3/u L Baso # (Auto) 0.1 (0.0-0.1) 10^3/u L Nucleated RBC % (a uto) 0 % Nucleated RBCs # 0.0 /100WBC Sodium 134 L (136-145) mmol/L Potassium 5.6 H (3.5-5.1) mmol/L Chloride 107 (98-107) mmol/L Carbon Dioxide 10 L (22-29) mmol/L Anion Gap 22.6 H (5-19) BUN 89 H* D (8-23) mg/dL Creatinine 2.7 H (0.7-1.2) mg/dL Glucose 126 H (65-115) mg/dL Calculated Osmolal ity 280 L (285-295) mOsm/k g Calcium 10.8 H (8.5-10.5) mg/dL Total Bilirubin 0.3 (0.15-1.2) mg/dL AST 17 (0-40) U/L ALT 12 (0-41) U/L Alkaline Phosphata se 117 (40-130) IU/L Total Protein 8.7 (6.6-8.7) g/dL Albumin 4.0 (3.5-5.2) g/dL Globulin 4.7 H (1.3-4.6) g/dL Lipase 216 H (13-60) U/L Urine Color Yellow (Yellow) Urine Appearance Cloudy (CLEAR) Urine pH 7 (5-7) Ur Specific Gravit y 1.010 (1.005-1.030) Urine Protein Trace (Negative) Urine Glucose (UA) Norm (Normal) Urine Ketones Negative (Negative) Urine Blood 2+ H (Negative) Urine Nitrate Negative (Negative) Urine Bilirubin Neg (NEGATIVE) Urine Urobilinogen Norm (Negative) mg/dL Ur Leukocyte Leena ase 2+ H (Negative) Urine RBC 0-4 H (0-2) /hpf Urine WBC Too numerous to c nt H (0-5) /hpf Ur Squamous Epith Cells 0-4 H (0-5) Urine Bacteria 4+ H (NONE) Discharge Plan Discharge Patient Disposition: Admitted As Inpatient Admit Provider: Mil Geller Clinical Impression: Acute renal failure, Cystitis, Constipation Condition: Stable Referrals: [facility]) [Outside] Maxi Borrego MD [Primary Care Provider] - Discharge Date/Time: 11/24/19 21:17 Coding Level of Care Code ED Tumble Tail[employer] Turret Lathe Operator for Chg Fwd Exam Comprehensive
--- NOTE | 2019-11-24 16:38 | XR_ITS ---
WS: [id number] XR chest 1V portable [id number] REASON FOR EXAM: dyspnea/cough FINDINGS: The peripheral lung show normal aeration. No pneumonia, pleural effusion, pulmonary edema, or mass effect. The hilum and apices normal. Mediastinal surfaces were normal. There is degenerate changes in the thoracic spine area. XR/XR chest 1V portable [id number] IMPRESSION: Negative chest for acute pathology.
--- NOTE | 2019-11-24 16:38 | XR_ITS ---
WS: [id number] XR KUB portable [id number] REASON FOR EXAM: Abdominal bloating FINDINGS: Marked fecal stasis particularly in the rectal vault. There is nonspecific gas there is no obstructive pattern. No free air is seen. XR/XR KUB portable [id number] IMPRESSION: Fecal stasis distally.
--- NOTE | 2019-11-24 16:39 | ECG_ITS ---
Measurements Intervals [place] Rate: 98 P: 64 ME: 153 QRS: 9 QRSD: 105 T: 85 QT: 330 QTc: 422 SINUS RHYTHM NONSPECIFIC T-WAVE ABNORMALITY Compared to ECG 08/12/2019 10:20:58 T-wave abnormality now present Sinus tachycardia no longer present Ventricular premature complex(es) no longer present Left ventricular hypertrophy no longer present ST (T wave) deviation no longer present Electronically Signed On 11-24-2019 17:13:29 CDT by Elias Hazel M.D. [email or web address]
[2019-11-24 17:14] LABS: Basophils # 0.1 10^3/uL (0.0-0.1); Basophils % 0.6 %; Eosinophils # 0.1 10^3/uL (0.0-0.8); Eosinophils % 0.4 %; Hematocrit 51.4 % (42.0-52.0); Hemoglobin 15.2 g/dL (11.7-16.6); Lymphocytes # 1.2 10^3/uL (0.8-4.8); Lymphocytes % 7.6 %; Mean Corpuscular HGB Conc 29.6 g/dL (30.0-36.0); Mean Corpuscular Hemoglobin 31.5 pg (28.0-34.0); Mean Corpuscular Volume 106.4 fL (80-94); Mean Platelet Volume 10.3 fL (7.4-10.4); Monocytes # 1.1 10^3/uL (0.2-0.9); Monocytes % 6.7 %; Neutrophils # 13.1 10^3/uL (1.8-7.7); Neutrophils % 83.9 %; Nucleated Red Blood Cells % 0 %; Platelet Count 388 10^3/cmm (130-400); Red Blood Count 4.83 10^6/uL (4.1-5.3); Red Cell Distribution Width 16.7 % (12.1-15.1); White Blood Count 15.6 10^3/uL (4.0-10.0)
[2019-11-24 17:33] LABS: Alanine Aminotransferase 12 U/L (0-41); Alkaline Phosphatase 117 IU/L (40-130); Anion Gap 22.6 (5-19); Aspartate Amino Transferase 17 U/L (0-40); Calcium 10.8 mg/dL (8.5-10.5); Carbon Dioxide 10 mmol/L (22-29); Chloride 107 mmol/L (98-107); Globulin 4.7 g/dL (1.3-4.6); Glucose 126 mg/dL (65-115); Lipase 216 U/L (13-60); Osmolality Calculated 280 mOsm/kg (285-295); Potassium 5.6 mmol/L (3.5-5.1); Sodium 134 mmol/L (136-145); Total Bilirubin 0.3 mg/dL (0.15-1.2); Total Protein 8.7 g/dL (6.6-8.7)
[2019-11-24] MEDS: sodium chloride 0.9% 1,000 ML 999 ML IV (17:39)
[2019-11-24 17:47] LABS: Blood Urea Nitrogen 89 mg/dL (8-23)
[2019-11-24 17:58] LABS: Urine Appearance Cloudy (CLEAR); Urine Color Yellow (Yellow); pH Urine 7 (5-7)
[2019-11-24 17:59] LABS: Add Urine Microscopic? YES; Bilirubin Urine Neg (NEGATIVE); Blood Urine 2+ (Negative); Glucose Urine UA Norm (Normal); Ketones Urine Negative (Negative); Leukocyte Esterase Urine 2+ (Negative); Nitrate Urine Negative (Negative); Protein Urine Trace (Negative); Urobilinogen Urine Norm (Negative)
[2019-11-24 18:04] LABS: Add Urine Culture? Yes; Bacteria Urine 4+; RBC Urine 0-4 /hpf (0-2); Squamous Epithelial Cell Urine 0-4 (0-5); WBC Urine TOO NUMEROUS TO CNT /hpf (0-5)
[2019-11-24] MEDS: sodium chloride 0.9% 500 ML 999 ML IV (18:24)
[2019-11-24] MEDS: cefTRIAXone 1,000 MG in sodium chloride 0.9% (plus) 50 ML 100 MG IV ×2 (18:57→22:29)
--- NOTE | 2019-11-24 20:27 | PM.HP ---
Providers/Chief Complaint Admitting Physician: Mil Geller MD Primary Care Provider: Maxi Borrego MD Chief Complaint: WEAKNESS History of Present Illness Laura Wu is a 74 year old male with past medical history of bladder cancer status post radical removal of bladder in [place]. He was admitted to this hospital in July of this year and found to be in acute renal failure with elevated potassium levels and also found to have ejection fraction of 30% that was significantly decreased from prior ultrasound. The patient presented to the hospital today with generalized weakness over the last 2 weeks. He states that he is been gradually worsening and is not sure why. In the ER he was found to be significantly dehydrated and orthostatic. He was given 1.5 L of IV fluids in the ER, however continues to be orthostatic and weak with an elevated BUN and creatinine. For this reason he was admitted for concern for underlying infection causing this. Review of Systems Narrative: The patient currently admits to orthostasis, generalized weakness, dry mouth. He denies chest pains, shortness of breath, cough, fever, abdominal pain, nausea, vomiting. He does admit to constipation. Medications/Allergies Home Medications Medication Instructions Recorded Confirmed Last Taken Type carvedilol 3.125 mg PO BID 11/24/19 11/24/19 11/24/19 History docusate sodium [Stool Softener] 100 mg PO PRN PRN 11/24/19 11/24/19 Unknown History ferrous sulfate [Iron (ferrous 325 mg PO TID 11/24/19 11/24/19 11/24/19 History sulfate)] pantoprazole 40 mg PO DAILY 11/24/19 11/24/19 11/24/19 History Allergies Allergy/AdvReac Type Severity Reaction Status Date / Time No Known Allergies Allergy Unverified 08/20/19 15:43 PFSH Acute PFSH: Medical History (Updated 11/24/19 @ 20:31 by Mil Geller MD) Elevated PSA Skin cancer 07/2017 large squamous cell skin cancer removed from right anterior chest wall. no metastasis. Squamous cell carcinoma of skin of chest Surgical History (Updated 11/24/19 @ 16:36 by Peter Pacheco DO) History of urostomy S/P tonsillectomy Family History (Updated 08/12/19 @ 14:16 by Maxi Borrego MD) Father Prostate cancer Social History Smoking and tobacco status: former smoker Quit status (tobacco): has quit using tobacco Alcohol intake: unknown Lives independently: Yes Marital status: Single service: Yes Vitals/I&O/Wt Last Vital Signs Temp 97.5 F L 11/24/19 16:16 Pulse 98 11/24/19 17:45 Resp 18 11/24/19 17:45 BP 126/69 11/24/19 17:45 Pulse Ox 100 11/24/19 17:45 Weight last 48 hrs Weight 188 lb Physical Exam Narrative: EXAM NARRATIVE: General: Alert and oriented x3, unkempt Eyes: PERRLA, EOMI Mouth: Mucous membranes are significantly dry without lesions Neck: No palpable masses or thyromegaly Lungs: Scattered rhonchi without crackles or wheezes Cardiac: Regular rate and rhythm without significant murmur Abdomen: Soft, nontender without hepatosplenomegaly. Urostomy present with thick chunky discharge present. Extremities: No edema Data : 11/24/19 16:55 11/24/19 16:55 Micro: Microbiology 11/24/19 18:43 Blood Culture - Preliminary Blood SPECIMEN COLLECTED 11/24/19 18:32 Blood Culture - Preliminary Blood SPECIMEN COLLECTED 11/24/19 16:55 Blood Culture - Preliminary Blood SPECIMEN COLLECTED 11/24/19 16:50 Blood Culture - Preliminary Blood SPECIMEN COLLECTED A&P Assessment and plan (1) History of urostomy: Status: Acute (2) Acute renal failure: Status: Acute (3) Generalized weakness: Status: Acute (4) Elevated BUN: Status: Acute Additional A&P Information 1. Dehydration -the patient significantly better hydrated even after 1.5 L of IV fluids in the ER. We will place him on normal saline 150 mL/h to help with continued hydration. 2. Hypokalemia -the patient's potassium is mildly elevated. We will watch it for now. If it is increasing, we will treat as indicated. 3. Acute renal failure -the patient's creatinine is certainly elevated, however it is unclear what his new baseline is. He had a significantly higher creatinine in July. My hope is that this will improve with IV fluids. This is likely prerenal. He has a history of it being postobstructive in nature. 4. Constipation -I will hold off on milk of mag for now, but give senna to start. 5. History of bladder cancer -the patient had a urostomy done and this seems to be possible source of infection. If he does not have good output or begins to have pain, we will consider repeat ultrasound of his kidneys to be sure that they are not obstructed. 6. UTI -the patient has signs of UTI and this may be chronic in nature secondary to his urostomy. He has been given Rocephin in the ER and we will continue this for now. Lactic acid and urine cultures will be done. Blood cultures are pending. 7. Systolic CHF -the patient's ejection fraction was 30% in July. If he is not improving significantly by tomorrow, we will plan to repeat his echocardiogram to be sure that it is not worsening. 8. Prophylaxis -Lovenox Attestations Medical Necessity Statement*: Patient will be of greater than 2 midnights due to multiple issues as above including acute renal failure. Coding Level of Care Code Acute Clean Up Supervisor for [facility] Kumar Diagnoses History of urostomy Z98.890 Acute renal failure N17.9 Generalized weakness R53.1 Elevated BUN R79.9
[2019-11-24 22:22] LABS: Lactic Acid level (Lactate) 3.3 mmol/L (0.5-2.2)
[2019-11-24] MEDS: dextrose 5%-sod chloride 0.45% 1,000 ML 150 ML IV (22:28)
[2019-11-24] MEDS: ferrous sulfate EC 325 mg Tablet PO (22:28)
[2019-11-24] MEDS: enoxaparin 40 mg/0.4 mL Syringe SUBCUT (22:28)
[2019-11-25] VITALS: BP 105/60; PULSE 81; RESP 16; TEMP 36.3; O2SAT 98
[2019-11-25 04:00] VITALS: BP 108/68; PULSE 74; RESP 16; TEMP 36.3; O2SAT 97
[2019-11-25] MEDS: dextrose 5%-sod chloride 0.45% 1,000 ML 150 ML IV ×3 (05:17→17:24)
[2019-11-25 06:45] LABS: Magnesium 2.5 mg/dL (1.7-2.3)
[2019-11-25 07:34] VITALS: BP 111/73; PULSE 64; RESP 18; TEMP 36.7; O2SAT 99
[2019-11-25 09:16] LABS: Basophils # 0.1 10^3/uL (0.0-0.1); Basophils % 0.5 %; Eosinophils # 0.1 10^3/uL (0.0-0.8); Eosinophils % 0.9 %; Hematocrit 42.2 % (42.0-52.0); Hemoglobin 12.3 g/dL (11.7-16.6); Lymphocytes # 1.3 10^3/uL (0.8-4.8); Lymphocytes % 11.1 %; Mean Corpuscular HGB Conc 29.1 g/dL (30.0-36.0); Mean Corpuscular Hemoglobin 31.4 pg (28.0-34.0); Mean Corpuscular Volume 107.7 fL (80-94); Mean Platelet Volume 10.5 fL (7.4-10.4); Monocytes # 1.1 10^3/uL (0.2-0.9); Monocytes % 9.8 %; Neutrophils # 8.7 10^3/uL (1.8-7.7); Neutrophils % 77.1 %; Nucleated Red Blood Cells % 0 %; Platelet Count 290 10^3/cmm (130-400); Red Blood Count 3.92 10^6/uL (4.1-5.3); Red Cell Distribution Width 16.7 % (12.1-15.1); White Blood Count 11.3 10^3/uL (4.0-10.0)
[2019-11-25 09:30] LABS: Alanine Aminotransferase 9 U/L (0-41); Albumin Level 3.1 g/dL (3.5-5.2); Alkaline Phosphatase 91 IU/L (40-130); Anion Gap 17.4 (5-19); Aspartate Amino Transferase 12 U/L (0-40); Calcium 10.2 mg/dL (8.5-10.5); Chloride 115 mmol/L (98-107); Glucose 180 mg/dL (65-115); Osmolality Calculated 289 mOsm/kg (285-295); Potassium 4.4 mmol/L (3.5-5.1); Sodium 137 mmol/L (136-145); Total Bilirubin 0.2 mg/dL (0.15-1.2); Total Protein 7.1 g/dL (6.6-8.7)
[2019-11-25 09:45] LABS: Blood Urea Nitrogen 82 mg/dL (8-23); Carbon Dioxide 9 mmol/L (22-29)
[2019-11-25] MEDS: ferrous sulfate EC 325 mg Tablet PO ×3 (10:19→20:30)
[2019-11-25] MEDS: pantoprazole DR 40 mg Tablet PO (10:20)
[2019-11-25] MEDS: carvedilol 3.125 mg Tablet PO ×2 (10:20→17:24)
[2019-11-25 10:43] VITALS: BP 120/76; PULSE 64; RESP 18; TEMP 36.6; O2SAT 100
--- NOTE | 2019-11-25 10:58 | PC.CHAP ---
Pastoral Care Encounter/Spiritual Assessment Type of Contact [] Declined chamber of [employer] division manager visit [] Patient/Family/Request visit [] Outpatient visit [] Follow-up visit [] Physician referral [] Code/Alert [x] Routine visit [] Staff referral [] Actively dying [] Patient sleeping [] Family support [] [] Out of room [] Palliative care [] [] Receiving care in room [] Pre-surgical visit [] Trauma [] Long length of stay [] ICU visit [] Other: Relational/Emotional Strength [x] Patient feels connected with others/family/visitors/staff [] Distress [] Loneliness/isolation [] Abandonment Spirituality of Patient [x] Person of Zunilda [] Attends Amish of their Zunilda [x] Believes in Prayer [] Reads Bible or Yarsani materials [] There are Spiritual issues to be addressed Electrotype Caster Interventions [x] Prayer [x] Active listening [x] Non-anxious presence [x] Spiritual/emotional support [] Crisis/trauma care [] Spiritual counseling [] Bereavement support [] Provided bereavement packet [] Provided Bible/devotional materials [] Provided toy/stuffed animal, coloring book to patient or family member [] Provided Communion [] Anointing/[place] [] Salvation [x] Completed spiritual assessment [] Other: Impact on Illness or Injury [] Angry [] Fearful [] Anxious [] Often cries [] Exhaustion [] Unable to work [] Unable to attend adventist [] Unable to walk/stand [] Unable to read [] Unable to drive [] Unable to eat/drink [] Unable to sleep [] Unable to be with family [] Patient intubated [x] Other: n/a Summary Time spent with patient 10 minutes
[2019-11-25 15:43] VITALS: BP 104/68; PULSE 62; RESP 18; TEMP 36.7; O2SAT 95
--- NOTE | 2019-11-25 16:36 | P.PN_ITS ---
Subjective Subjective: Interval history: The patient states that his weakness is slightly improved, however he continues to feel thirsty and weak in general. The patient continues to have little appetite. The patient is concerned about having constipation as he has not been able to have a bowel movement since last week. The patient notes a history of removal of a skin cancer on his right upper shoulder. He has had a skin graft. He thinks it was a melanoma. He says that Dr. Dasilva had removed it. Vitals/I&O/Wt Last Vital Signs Temp 98.0 F 11/25/19 15:43 Pulse 62 11/25/19 15:43 Resp 18 11/25/19 15:43 BP 104/68 11/25/19 15:43 Pulse Ox 95 11/25/19 15:43 11/25/19 11/25/19 11/25/19 06:59 14:59 22:59 Intake Total 1000 / 1200 1722.5 / 1722.5 120 / 1842.5 Output Total 500 / 500 Balance 500 / 700 1722.5 / 1722.5 120 / 1842.5 Weight last 48 hrs Weight 188 lb Physical Exam Narrative: EXAM NARRATIVE: General: Alert and oriented x3, unkempt Eyes: PERRLA, EOMI Mouth: Mucous membranes are dry without lesions Neck: No palpable masses or thyromegaly Lungs: Scattered rhonchi without crackles or wheezes Chest: There is a ~4 cm raised lesion on the right upper chest that is friable, exophytic and oozing with blood and raised approximately 1.5 cm in height. It is highly suspicious of a cancer. Cardiac: Regular rate and rhythm without significant murmur Abdomen: Soft, nontender without hepatosplenomegaly. Urostomy present with thick chunky discharge present. Extremities: No edema Data : 11/25/19 05:51 11/25/19 05:51 Micro: Microbiology 11/24/19 18:43 Blood Culture - Preliminary Blood SPECIMEN COLLECTED 11/24/19 18:32 Blood Culture - Preliminary Blood SPECIMEN COLLECTED 11/24/19 16:55 Blood Culture - Preliminary Blood SPECIMEN COLLECTED 11/24/19 16:50 Blood Culture - Preliminary Blood SPECIMEN COLLECTED A&P Assessment and plan (1) History of urostomy: Status: Acute (2) Acute renal failure: Status: Acute (3) Generalized weakness: Status: Acute (4) Elevated BUN: Status: Acute Additional A&P Information 1. Dehydration -the patient shows signs of improvement in terms of hydration status. We will decrease IV fluids to 100 mL/h. The patient was encouraged to continue with oral intake of fluids. 2. Hypokalemia -back to normal range. 3. Acute renal failure -the patient's creatinine is improving and is likely secondary to prerenal causes, however it has not improved sufficiently, so I will get a repeat ultrasound of the kidneys to rule out an obstructive cause. 4. Constipation -milk of magnesia for treatment. 5. History of bladder cancer -the patient had a urostomy done and this seems to be possible source of infection. If he does not have good output or begins to have pain, we will consider repeat ultrasound of his kidneys to be sure that they are not obstructed. 6. UTI -the patient has signs of UTI and this may be chronic in nature secondary to his urostomy. He has been given Rocephin in the ER and we will continue this for now. Lactic acid was slightly elevated. We will recheck levels. Blood cultures are pending. 7. Systolic CHF -the patient's ejection fraction was 30% in July. Recheck ejection fraction today. 8. Exophytic mass with history of squamous cell carcinoma -I spoke with Dr. Oliveros is to agree to see the patient. I appreciate his consultation. 9. Prophylaxis -Lovenox Attestations Medical Necessity Statement*: The patient continues to inpatient care for tr eatment of acute renal failure. Continue with the above treatments. Coding Level of Care Code Acute Infection Control Coordinator for [facility] José Diagnoses History of urostomy Z98.890 Acute renal failure N17.9 Generalized weakness R53.1 Elevated BUN R79.9
[2019-11-25] MEDS: magnesium hydroxide 30 mL UDC PO (17:24)
--- NOTE | 2019-11-25 17:27 | P.CONIM_ITS ---
Providers/Reason For Consult Consulting Physican/Specialty*: Alvin Oliveros MD Reason for Consult*: Right upper chest mass Attending Physician: Mil Geller MD Primary Care Provider: Maxi Borrego MD History of Present Illness History of Present Illness Chief Complaint: I have a lump on my chest wall HPI This is a pleasant 74 years old gentleman with multiple medical comorbidities including bilateral ureteral obstruction, anemia, systolic congestive heart failure, metabolic acidosis, hydronephrosis and history of renal failure and currently has a right lower abdominal ureterosotmy. Patient gives history of excision of skin cancer of the right upper chest wall by my partner Dr. Brown alcantar in 2018 and that was followed by skin graft same year, it is not clear how the patient continued to have a follow-up yet is admitted this time on Dr. Geller service due to weakness dehydration and abnormal lab work, was noticed to have clinically recurrence of right upper c hest mass and to my understanding that the patient had a squamous cell carcinoma that was excised in the past and now shows local recurrence. General surgery was consulted for further evaluation potential and intervention Review of Systems General: Reports: 10 or more systems reviewed and unremarkable except in HPI and below Meds/Allergies Home Medications and Allergies Home Medications Medication Instructions Recorded Confirmed Last Taken Type carvedilol 3.125 mg PO BID 11/24/19 11/24/19 11/24/19 History docusate sodium [Stool Softener] 100 mg PO PRN PRN 11/24/19 11/24/19 Unknown History ferrous sulfate [Iron (ferrous 325 mg PO TID 11/24/19 11/24/19 11/24/19 History sulfate)] pantoprazole 40 mg PO DAILY 11/24/19 11/24/19 11/24/19 History Allergies Allergy/AdvReac Type Severity Reaction Status Date / Time No Known Allergies Allergy Unverified 11/25/19 17:31 Current Medications Current Medications Generic Name Dose Route Start Last Admin Trade Name Freq PRN Reason Stop Dose Admin Carvedilol 3.125 mg 11/25/19 09:00 11/25/19 17:24 Coreg PO 3.125 mg BID MARIANA Administration Enoxaparin Sodium 40 mg 11/24/19 21:30 11/24/19 22:28 Lovenox SUBCUT 40 mg Q24H MARIANA Administration Ferrous Sulfate 325 mg 11/24/19 21:10 11/25/19 15:18 Ferrous Sulfate PO 325 mg TID MARIANA Administration Dextrose/Sodium Chloride 1,000 mls @ 100 mls/hr 11/24/19 21:10 11/25/19 17:24 Dextrose 5%-Sod Chloride 0.45% IV 150 mls/hr .Q10H MARIANA Administration Magnesium Hydroxide 30 ml 11/25/19 16:33 11/25/19 17:24 Milk Of Magnesia PO 30 ml DAILY PRN Administration CONSTIPATION Pantoprazole Sodium 40 mg 11/25/19 09:00 11/25/19 10:20 Protonix PO 40 mg DAILY MARIANA Administration PFSH Acute PFSH: Medical History Elevated PSA Skin cancer 07/2017 large squamous cell skin cancer removed from right anterior chest wall. no metastasis. Squamous cell carcinoma of skin of chest Surgical History History of urostomy S/P tonsillectomy Family History Father Prostate cancer Social History Smoking and tobacco status: former smoker Quit status (tobacco): has quit using tobacco Alcohol intake: unknown Lives independently: Yes Marital status: Single service: Yes Vitals/I&O/Wt Last Vital Signs Temp 98.0 F 11/25/19 15:43 Pulse 62 11/25/19 15:43 Resp 18 11/25/19 15:43 BP 104/68 11/25/19 15:43 Pulse Ox 95 11/25/19 15:43 11/25/19 11/25/19 11/25/19 06:59 14:59 22:59 Intake Total 1000 / 1200 1722.5 / 1722.5 1120 / 2842.5 Output Total 500 / 500 Balance 500 / 700 1722.5 / 1722.5 1120 / 2842.5 Weight last 48 hrs Weight 188 lb Physical Exam Const: COMMON NORMALS: no apparent distress and oriented x3 GENERAL APPEARANCE: cooperative ORIENTATION/CONSCIOUSNESS: Yes awake, Yes oriented to person, Yes oriented to place and Yes oriented to time HENMT: COMMON NORMALS: normocephalic HEAD & SCALP: normocephalic Eye: COMMON NORMALS: PERRL and no scleral icterus PUPIL: Yes PERRL Lymph: LYMPHATIC: no lymphadenopathy noted Chest: Chest images (male): 1. Presence of fungating growth likely squamous cell carcinoma occupying the right anterior axillary fold measures about 3.5 x 3.5 cm and about 2.5 cm above the skin surface firm in consistency, with surrounding indurated margin to the extent of about 1 cm from the mass turning for underlying wider base of neoplasia, no associated ipsilateral axillary or epitrochlear lymphadenopathy. Limited in mobility Gross neurovascular examination of the right upper extremity is intact. Friable tissues of the occupying mass Resp: COMMON NORMALS: normal respiratory effort and clear to auscultation bilaterally AUSCULTATION: clear to auscultation bilaterally Cardio: COMMON NORMALS: S1 normal heart sound and S2 normal heart sound; negative for no murmurs HEART SOUNDS: S1 normal and S2 normal GI: COMMON NORMALS: soft to palpation; negative for no hepatosplenomegaly INSPECTION: Yes normal to inspection PALPATION: Yes soft, No firm, No tender, No guarding, No rigid and No no hep atosplenomegaly PERCUSSION: other (Presence of right-sided abdominal uret erostomy/midline abdominal wall scar) Neuro: COMMON NORMALS: oriented x3 SENSORIUM/ORIENTATION: Yes oriented to person, Yes oriented to place and Yes oriented to time Psych: COMMON NORMALS: mental status grossly normal Skin: COMMON NORMALS: no rashes or lesions noted GENERAL SKIN EXAM: no rashes or lesions noted Data Micro: Micro: Microbiology 11/24/19 16:55 Blood Culture - Pr eliminary Blood NEGATIVE TO GRACIE E 11/24/19 16:50 Blood Culture - Pr eliminary Blood NEGATIVE TO GRACIE E 11/24/19 18:43 Blood Culture - Pr eliminary Blood SPECIMEN [facility] 11/24/19 18:32 Blood Culture - Pr eliminary Blood SPECIMEN [facility] A&P Assessment and plan (1) Squamous cell carcinoma of skin of chest: After history taking physical examination and reviewing the chart likely the patient has a recurrence of a previously excised squamous cell carcinoma of the right upper chest, I do believe at this point that the patient would benefit from imaging studies it would be beneficial if we can obtain a CT scan of the chest with IV contrast but given the fact that the patient's kidney functions ar e not optimal a CT scan of the chest without contrast would be another option versus an MRI, I will discuss further with radiology what would be better option at this point. I do highly recommend that the patient would benefit from radiation oncology consultation, a repeat biopsy may be warranted before planning for any further management, which may entail incisional biopsy, I do not believe at this point a wide local excision would be necessarily the avenue to go I do believe that the patient may benefit from radiation will talk with Dr. Brown, and see if he is able to see the patient as an inpatient or as an outpatint. I did discuss with the patient about the potential plan of care and he agrees on the above. Meanwhile I do highly recommend to place a dressing daily in the form of Adaptic followed by ABD to minimize potential bleeding. I will continue coordinating with Dr. Geller Thank you for consulting general surgery to participate taking care Status: Acute Consult Attestations Medical Necessity Statement: Per hospitalist service Time Spent in Patient Care: 16 - 35 minutes (>than 50% of time spent in counselling and/or direct pt care on unit) . Coding Level of Care Code Acute Youth Corrections Officer for Noé Fwd Exam Comprehensive Diagnoses Squamous cell carcinoma of skin of chest C44.529
[2019-11-25 19:20] VITALS: BP 112/76; PULSE 65; RESP 16; TEMP 36.4; O2SAT 100
[2019-11-25] MEDS: enoxaparin 40 mg/0.4 mL Syringe SUBCUT (20:30)
[2019-11-26] VITALS (7 sets, daily range): BP systolic 105–133; BP diastolic 64–82; PULSE 64–76; RESP 16–22; TEMP 36.3–36.9; O2SAT 92–98
[2019-11-26] MEDS: dextrose 5%-sod chloride 0.45% 1,000 ML 100 ML IV ×2 (06:36→20:58)
[2019-11-26] MEDS: carvedilol 3.125 mg Tablet PO ×2 (08:11→17:54)
[2019-11-26] MEDS: ferrous sulfate EC 325 mg Tablet PO ×3 (08:11→20:57)
[2019-11-26] MEDS: pantoprazole DR 40 mg Tablet PO (08:11)
--- NOTE | 2019-11-26 12:11 | CT_ITS ---
WS: [id number] CT chest wo con [id number] REASON FOR EXAM: history of melanoma IV CONTRAST ADMINISTERED: None. TOTAL EXAM DLP: 924.[address] scans at [facility] use at least one of these dose optimization techniques: automat ed exposure control; mA and/or kV adjustment per patient size (includes targeted exams where dose is matched to clinical indication); or iterative reconstruction. FINDINGS: A large mass is seen off the chest wall into the musculature in the right upper chest. Mass measures 4.11 cm meters follows the skin down through the subcutaneous area into the musculature in the right upper chest. There is no definite extension into the lungs. The mediastinum appear to be normal no lymphadenopathy is seen. The involvement of the subcutaneous area is seen in the coronal projection the lesion measures 4.47 x 4.0 cm. The lung fischer appear to be normal. Normal aeration is seen. No definite intrathoracic involvement i s seen there is chronic obstructive pulmonary disease. The liver shows no definite pathological changes. The right left adrenal glands were normal. CT/CT chest wo con [id number] IMPRESSION: A prominent chest wall mass is seen on the right side extends into the subcutan eous area but not into the thoracic cavity.
[2019-11-26 12:56] LABS: Basophils % 0.3 %; Eosinophils # 0.1 10^3/uL (0.0-0.8); Eosinophils % 1.1 %; Hemoglobin 14.4 g/dL (11.7-16.6); Lymphocytes # 1.2 10^3/uL (0.8-4.8); Lymphocytes % 9.8 %; Mean Corpuscular HGB Conc 30.6 g/dL (30.0-36.0); Mean Corpuscular Hemoglobin 31.4 pg (28.0-34.0); Mean Corpuscular Volume 102.4 fL (80-94); Mean Platelet Volume 11.4 fL (7.4-10.4); Monocytes # 0.9 10^3/uL (0.2-0.9); Monocytes % 6.9 %; Neutrophils # 10.1 10^3/uL (1.8-7.7); Neutrophils % 81.2 %; Nucleated Red Blood Cells % 0 %; Red Blood Count 4.59 10^6/uL (4.1-5.3); Red Cell Distribution Width 16.7 % (12.1-15.1); White Blood Count 12.5 10^3/uL (4.0-10.0)
[2019-11-26 13:18] LABS: Platelet Count 187 10^3/cmm (130-400)
[2019-11-26 13:19] LABS: Slide Review Slide Review Perform
--- NOTE | 2019-11-26 13:37 | P.PN_ITS ---
Subjective Subjective: Interval history: The patient is feeling slightly better from yesterday. His overall weakness seems to be improving some. Patient continues to feel dehydrated. The patient still has not had a significant bowel movement. Vitals/I&O/Wt Last Vital Signs Temp 98.3 F 11/26/19 10:51 Pulse 64 11/26/19 10:51 Resp 22 H 11/26/19 10:51 BP 110/64 11/26/19 10:51 Pulse Ox 95 11/26/19 10:51 11/25/19 11/26/19 11/26/19 22:59 06:59 14:59 Intake Total 1600 / 3322.5 1000 / 4322.5 720 / 720 Output Total 700 / 700 600 / 600 Balance 1600 / 3322.5 300 / 3622.5 120 / 120 Weight last 48 hrs Weight 188 lb Physical Exam Narrative: EXAM NARRATIVE: General: Alert and oriented x3, unkempt Eyes: PERRLA, EOMI Mouth: Mucous membranes are dry without lesions Neck: No palpable masses or thyromegaly Lungs: Scattered rhonchi without crackles or wheezes Chest: There is a ~4 cm raised lesion on the right upper chest that is friable, exophytic and oozing with blood and raised approximately 1.5 cm in height. It is highly suspicious of a cancer. Cardiac: Regular rate and rhythm without significant murmur Abdomen: Soft, nontender without hepatosplenomegaly. Urostomy present with thick chunky discharge present. Extremities: No edema Data : 11/26/19 12:35 11/25/19 05:51 Micro: Microbiology 11/24/19 17:28 Urine Culture - Preliminary Urine,Clean Catch 11/24/19 18:43 Blood Culture - Preliminary Blood NEGATIVE TO DATE 11/24/19 18:32 Blood Culture - Preliminary Blood NEGATIVE TO DATE 11/24/19 16:55 Blood Culture - Preliminary Blood NEGATIVE TO DATE 11/24/19 16:50 Blood Culture - Preliminary Blood NEGATIVE TO DATE A&P Assessment and plan (1) History of urostomy: Status: Acute (2) Acute renal failure: Status: Acute (3) Generalized weakness: Status: Acute (4) Elevated BUN: Status: Acute Additional A&P Information 1. Dehydration -the patient shows signs of improvement in terms of hydration status. Continue with IV fluids at 100 mL/h. The patient was encouraged to continue with oral intake of fluids. 2. Hypokalemia -pending labs today. 3. Acute renal failure -the patient's creatinine has been improving gradually. Awaiting labs today. 4. Constipation -milk of magnesia for treatment. 5. History of bladder cancer -the patient had an ilial conduit made to form a new bladder after having his bladder removed because of cancer in July 2019. This was done in [place]. This seems to be the source of infection. Ultrasound does not show signs of hydronephrosis of the kidneys. Since the patient does not have hydronephrosis, we will wait on a urology referral, however if he is worsening or there are signs that his urostomy is not flowing sufficiently, we will need to discuss with urology about possible stent placement. 6. Pyelonephritis -the patient's urine culture is growing 3 gram-negative rods and these may be contaminants, however it is very likely that the patient has pyelonephritis secondary to having an ilial conduit. Continue with Rocephin as he seems to be improving with this treatment. Adjust medications if he seems to be worsening again. 7. Systolic CHF -the patient's ejection fraction was 30% in July. Recheck ejection fraction was 25 to 30% today. Stable from prior admission. 8. Exophytic mass with history of squamous cell carcinoma -I spoke with Dr. Oliveros who saw the patient and ordered a CT scan. CT scan shows signs of invasion into the pectoralis muscle. Further recommendations per Dr. Oliveros. I appreciate his consultation. 9. Prophylaxis -Lovenox Attestations Medical Necessity Statement*: The patient continues need inpatient care as we work on treating his pyelonephritis as well as acute renal failure. I have discussed with him the possibility of going to a nursing facility for further rehabilitation and he will discuss this with his family. Coding Level of Care Code Acute Silver Solution Mixer for [facility] Fwd Diagnoses History of urostomy Z98.890 Acute renal failure N17.9 Generalized weakness R53.1 Elevated BUN R79.9
[2019-11-26 13:51] LABS: Albumin Level 3.4 g/dL (3.5-5.2); Alkaline Phosphatase 94 IU/L (40-130); Blood Urea Nitrogen 52 mg/dL (8-23); Calcium 9.8 mg/dL (8.5-10.5); Carbon Dioxide 11 mmol/L (22-29); Chloride 111 mmol/L (98-107); Globulin 3.4 g/dL (1.3-4.6); Glucose 137 mg/dL (65-115); Osmolality Calculated 280 mOsm/kg (285-295); Sodium 135 mmol/L (136-145); Total Bilirubin 0.2 mg/dL (0.15-1.2); Total Protein 6.8 g/dL (6.6-8.7)
[2019-11-26 14:51] LABS: Alanine Aminotransferase 9 U/L (0-41); Aspartate Amino Transferase 15 U/L (0-40); Magnesium 2.2 mg/dL (1.7-2.3)
[2019-11-26 14:52] LABS: Anion Gap 17.7 (5-19); Phosphorus 2.3 mg/dL (2.5-4.5); Potassium 4.7 mmol/L (3.5-5.1)
--- NOTE | 2019-11-26 15:30 | P.PN_ITS ---
Subjective Subjective: Interval history: Patient undergone a CT scan of the chest without contrast per my FINDINGS: A large mass is seen off the chest wall into the musculature in the right upper chest. Mass measures 4.11 cm meters follows the skin down through the subcutaneous area into the musculature in the right upper chest. There is no definite extension into the lungs. The mediastinum appear to be normal no lymphadenopathy is seen. The involvement of the subcutaneous area is seen in the coronal projection the lesion measures 4.47 x 4.0 cm. The lung fischer appear to be normal. Normal aeration is seen. No definite intrathoracic involvement is seen there is chronic obstructive pulmonary disease. The liver shows no definite pathological changes. The right left adrenal glands were normal. CT/CT chest wo con [id number] IMPRESSION: A prominent chest wall mass is seen on the right side extends into the subcutaneous area but not into the thoracic cavity. Overall appears to be a little bit better than yesterday Vitals/I&O/Wt Last Vital Signs Temp 98.3 F 11/26/19 10:51 Pulse 64 11/26/19 10:51 Resp 22 H 11/26/19 10:51 BP 110/64 11/26/19 10:51 Pulse Ox 95 11/26/19 10:51 11/26/19 11/26/19 11/26/19 06:59 14:59 22:59 Intake Total 1000 / 4322.5 720 / 720 Output Total 700 / 700 600 / 600 Balance 300 / 3622.5 120 / 120 Weight last 48 hrs Weight 188 lb Physical Exam Const: COMMON NORMALS: no apparent distress and oriented x3 GENERAL APPEARANCE: cooperative ORIENTATION/CONSCIOUSNESS: Yes awake, Yes oriented to person, Yes oriented to place and Yes oriented to time HENMT: COMMON NORMALS: normocephalic HEAD & SCALP: normocephalic Eye: COMMON NORMALS: PERRL and no scleral icterus PUPIL: Yes PERRL Lymph: LYMPHATIC: no lymphadenopathy noted Chest: OTHER: Examination stable in comparison to yesterday with regard to right upper chest wall mass Neuro: COMMON NORMALS: oriented x3 SENSORIUM/ORIENTATION: Yes oriented to person, Yes oriented to place and Yes oriented to time Psych: COMMON NORMALS: mental status grossly normal Data : 11/26/19 12:35 11/26/19 12:35 Micro: Microbiology 11/24/19 17:28 Urine Culture - Preliminary Urine,Clean Catch Gram Negative Rods 11/24/19 18:43 Blood Culture - Preliminary Blood NEGATIVE TO DATE 11/24/19 18:32 Blood Culture - Preliminary Blood NEGATIVE TO DATE 11/24/19 16:55 Blood Culture - Preliminary Blood NEGATIVE TO DATE 11/24/19 16:50 Blood Culture - Preliminary Blood NEGATIVE TO DATE A&P Assessment and plan (1) Squamous cell carcinoma of skin of chest: After further evaluation and reviewing the images of the CT scan of the chest with my personal interpretation I did talk with the patient about the potential of wide local excision, versus incisional biopsy referred to oncology for potential opinion of radiation. Patient elected at this point to talk with the family and think it over, respected patient's wishes and will revisit with the patient at more convenient time for him. I did talk with Dr. Geller to close the loop Thank you for consulting general surgery to participate taking care Mr. Wu Status: Acute Attestations Medical Necessity Statement*: Per hospitalist Time Spent in Patient Care: 16 - 35 minutes (>than 50% of time spent in counselling and/or direct pt care on unit) . Coding Level of Care Code Acute Hospital Technician for Noé Kumar Diagnoses Squamous cell carcinoma of skin of chest C44.529
--- NOTE | 2019-11-26 16:33 | USCV_ITS ---
Laura Wu Age: 74 Gender: M : 1945 Exam Date: 11/26/2019 07:24 Ordering Phys: Mil Geller MD Technologist: Del Nieto Exam Location: [facility] [place] Indication: WEAKNESS BP: 138 / 72 HR: 71 Rhythm: Sinus Technical Quality: Suboptimal MEASUREMENTS (Male / Female) Normal Values 2D ECHO LV Diastolic Diameter PLAX 5.9 cm 4.2 - 5.9 / 3.9 - 5.3 cm LV Systolic Diameter PLAX 4.7 cm IVS Diastolic Thickness 1.5 cm 0.6 - 1.0 / 0.6 - 0.9 cm IVS Systolic Thickness 1.6 cm LVPW Diastolic Thickness 1.5 cm 0.6 - 1.0 / 0.6 - 0.9 cm LVPW Systolic Thickness 1.7 cm LVOT Diameter 2.1 cm LV Ejection Fraction 2D Teich 40.5 % LV Ejection Fraction MOD 2C 19.3 % LV Ejection Fraction 2C AL 18.8 % LA Diameter 4.8 cm LA Width 5.4 cm LA Height 5.2 cm RA Width 5.9 cm RA Height 5.5 cm M-MODE LV Diastolic Diameter MM 7.0 cm 4.2 - 5.9 / 3.9 - 5.3 cm LV Systolic Diameter MM 5.4 cm LV Ejection Fraction MM Teich 43.7 % IVS Diastolic Thickness MM 1.4 cm 0.6 - 1.0 / 0.6 - 0.9 cm IVS Systolic Thickness MM 2.3 cm LVPW Diastolic Thickness MM 1.7 cm 0.6 - 1.0 / 0.6 - 0.9 cm LVPW Systolic Thickness MM 2.4 cm RV Diastolic Diameter MM 3.0 cm Aortic Annulus Diameter 4.1 cm LA Ao Ratio MM 1.2 MV E Point Septal Separation 4.0 cm FINDINGS Left Ventricle Dilated left ventricle with severe diffuse hypokinesia. LV ejection fraction around 25- 30% No apical views were obtained Right Ventricle Possibly of normal size. Could not be visualized well Right Atrium Right atrium not well visualized. Left Atrium Possibly of normal size. Could not visualize well Mitral Valve Thickened mitral valve. Aortic Valve Thickened aortic valve. Tricuspid Valve Tricuspid valve not well visualized. Pulmonic Valve Pulmonic valve not well visualized. Pericardium No pericardial effusion. Aorta The aortic root appears to be of normal size. CONCLUSIONS Dilated left ventricle with an ejection fraction of 25 to 30%. Minimally thickened aortic and mitral valves. Technically very difficult study because of the poor ultrasonic window Compared to the previous study from 08/12/2019, there may not be a significant change. Dr Prerna Le MD FAC (Electronically Signed) Final Date: 26 Nov 2019 10:12 S
--- NOTE | 2019-11-26 16:33 | US_ITS ---
WS: [id number] RENAL ULTRASOUND REASON FOR EXAM: Acute renal failure TECHNIQUE: Grayscale and Doppler ultrasound examination of the kidneys. FINDINGS: Right kidney: Right kidney measures 9.6 cm x 4.5 cm x 4.5 cm. Multiple benign-appearing cysts are see n. Left kidney: Left kidney measures 11.4 cm x 6.1 cm x 5.3 cm. Multiple benign appearing cysts the larg est on the left than the right. The aorta was normal. US/US renal BI* [id number] IMPRESSION: Multiple benign renal cysts bilaterally the largest on the left.
[2019-11-26] MEDS: magnesium hydroxide 30 mL UDC PO (17:54)
[2019-11-26] MEDS: enoxaparin 40 mg/0.4 mL Syringe SUBCUT (20:57)
[2019-11-27] VITALS: BP 101/66; PULSE 80; RESP 14; TEMP 36.4; O2SAT 95
[2019-11-27 04:00] VITALS: BP 153/91; PULSE 71; RESP 18; TEMP 36.6; O2SAT 96
[2019-11-27 07:04] VITALS: BP 100/66; PULSE 67; RESP 18; TEMP 36.7; O2SAT 96
[2019-11-27] MEDS: carvedilol 3.125 mg Tablet PO ×2 (08:15→18:10)
[2019-11-27] MEDS: dextrose 5%-sod chloride 0.45% 1,000 ML 100 ML IV ×2 (08:15→18:10)
[2019-11-27] MEDS: ferrous sulfate EC 325 mg Tablet PO ×3 (08:15→21:47)
[2019-11-27] MEDS: pantoprazole DR 40 mg Tablet PO (08:15)
--- NOTE | 2019-11-27 11:02 | PC.SOCIAL ---
IMM Update Pg 2 of IMM updated. Initialed, dated, and timed, and placed in chart and copy provided to patient.
[2019-11-27 12:00] VITALS: BP 103/65; PULSE 61; RESP 18; TEMP 37.1; O2SAT 96
--- NOTE | 2019-11-27 12:37 | P.PN_ITS ---
Subjective Subjective: Interval history: feeling better, no new complaints, discussed surgicl option with family- wants to proceed with incisional biopsy Medications: Reviewed: Yes Vitals/I&O/Wt Last Vital Signs Temp 98.7 F 11/27/19 12:00 Pulse 61 11/27/19 12:00 Resp 18 11/27/19 12:00 BP 103/65 11/27/19 12:00 Pulse Ox 96 11/27/19 12:00 11/26/19 11/27/19 11/27/19 22:59 06:59 14:59 Intake Total 1840 / 2560 1238 / 3798 Output Total 850 / 1450 Balance 1840 / 1960 388 / 2348 Physical Exam Narrative: EXAM NARRATIVE: General: Alert and oriented x3 Eyes: PERRLA, EOMI Neck: No palpable masses or thyromegaly Lungs: clear bilaterally Chest: There is a ~4 cm raised exophytic ulcer on right upper chest Cardiac: Regular rate and rhythm without significant murmur Abdomen: Soft, nontender without hepatosplenomegaly. Urostomy present with thick chunky discharge present. Extremities: No edema Data : 11/26/19 12:35 11/26/19 12:35 Micro: Microbiology 11/24/19 17:28 Urine Culture - Preliminary Urine,Clean Catch Gram Negative Rods Gram Negative Rods#2 A&P Additional A&P Information 1. Dehydration -the patient shows signs of improvement in terms of hydration status. Continue with IV fluids d5NS at 100 mL/h. The patient was encouraged to continue with oral intake of fluids. 2. Hyperkalemia -resolved 3. ALONSO -the patient's creatinine has been improving gradually with hydration 4. Constipation -milk of magnesia for treatment. 5. History of bladder cancer s/p cystectomy with creation of ileal conduit July 2019. This was done in [place]. This may potentially be leading to UTI. Since the patient does not have hydronephrosis, we will wait on a urology referral, however if he is worsening or there are signs that his urostomy is not flowing sufficiently, we will need to discuss with urology about possible stent placement after obtaining CT KUB. It is unlikely that urine will ever sterilize given ileal pouch. For future UA and cx collections, ideally should have specimen collected directly from stoma rather than bag. While this will always show gut colonizers, results will help determine if there are any MDR organisms and tailor current and furture antibiotic selection. 6. Pyelonephritis -the patient's urine culture is growing 3 gram-negative rods and these are colonizers, as above. w/up requested to tailor treatment Continue with Rocephin as he seems to be improving with this treatment. He is at high risk of recurrent pyelonephritis as the uretero-conduit junction i s highly prone to reflux and pyelonephritis as a result. Output from stoma expected to be mucoid over the next many months, this is expected and does not indicate a UTI. However, debris may make the urinary system prone to obstruction. 7. Systolic CHF -the patient's ejection fraction was 30% in July. Recheck ejection fraction was 25 to 30% today. Note made of Stable from prior admission. 8. Exophytic mass with history of squamous cell carcinoma over chest wall with signs of invasion into the pectoralis muscle. Further recommendations per Dr. Oliveros. I appreciate his consultation. 9. Prophylaxis -Lovenox Attestations Medical Necessity Statement*: slowly improving, likely discharge in the next 24-48 hrs Coding Level of Care Code Acute Deck And Hull Assembler for Noé Kumar
[2019-11-27 16:00] VITALS: BP 111/70; PULSE 85; RESP 17; TEMP 36.4; O2SAT 92
[2019-11-27 20:00] VITALS: BP 102/70; PULSE 63; RESP 18; TEMP 37.2; O2SAT 97
[2019-11-27] MEDS: enoxaparin 40 mg/0.4 mL Syringe SUBCUT (21:47)
[2019-11-28] VITALS (7 sets, daily range): BP systolic 86–144; BP diastolic 52–97; PULSE 55–73; RESP 17–24; TEMP 36.4–36.8; O2SAT 94–98
[2019-11-28] MEDS: dextrose 5%-sod chloride 0.45% 1,000 ML 100 ML IV ×2 (04:12→14:34)
[2019-11-28 05:39] LABS: Basophils % 0.3 %; Eosinophils # 0.1 10^3/uL (0.0-0.8); Eosinophils % 1.2 %; Hematocrit 38.8 % (42.0-52.0); Hemoglobin 11.7 g/dL (11.7-16.6); Lymphocytes # 1.2 10^3/uL (0.8-4.8); Lymphocytes % 16.1 %; Mean Corpuscular HGB Conc 30.2 g/dL (30.0-36.0); Mean Corpuscular Hemoglobin 32.3 pg (28.0-34.0); Mean Corpuscular Volume 107.2 fL (80-94); Mean Platelet Volume 10.5 fL (7.4-10.4); Monocytes # 0.7 10^3/uL (0.2-0.9); Monocytes % 8.4 %; Neutrophils # 5.7 10^3/uL (1.8-7.7); Neutrophils % 73.2 %; Nucleated Red Blood Cells % 0 %; Platelet Count 215 10^3/cmm (130-400); Red Blood Count 3.62 10^6/uL (4.1-5.3); Red Cell Distribution Width 16.8 % (12.1-15.1); White Blood Count 7.7 10^3/uL (4.0-10.0)
[2019-11-28 06:23] LABS: Alanine Aminotransferase 7 U/L (0-41); Albumin Level 2.7 g/dL (3.5-5.2); Alkaline Phosphatase 84 IU/L (40-130); Anion Gap 16.4 (5-19); Aspartate Amino Transferase 10 U/L (0-40); Blood Urea Nitrogen 31 mg/dL (8-23); Calcium 8.8 mg/dL (8.5-10.5); Carbon Dioxide 11 mmol/L (22-29); Chloride 110 mmol/L (98-107); Globulin 3.1 g/dL (1.3-4.6); Glucose 102 mg/dL (65-115); Osmolality Calculated 273 mOsm/kg (285-295); Potassium 4.4 mmol/L (3.5-5.1); Sodium 133 mmol/L (136-145); Total Bilirubin 0.2 mg/dL (0.15-1.2); Total Protein 5.8 g/dL (6.6-8.7)
--- NOTE | 2019-11-28 06:51 | P.PN_ITS ---
Subjective Subjective: Interval history: Patient overall feels better Patient agreed to perform an incisional biopsy and also agreed on medical oncology referral Vitals/I&O/Wt Last Vital Signs Temp 98.1 F 11/28/19 03:50 Pulse 61 11/28/19 03:50 Resp 18 11/28/19 03:50 BP 119/97 11/28/19 03:50 Pulse Ox 96 11/28/19 03:50 11/27/19 11/27/19 11/28/19 14:59 22:59 06:59 Intake Total 500 / 500 1401.667 / 8614.274 8185 / 2901.667 Output Total 1000 / 1000 550 / 1550 Balance 500 / 500 401.667 / 901.667 450 / 1351.667 Physical Exam Narrative: EXAM NARRATIVE: Patient is conscious alert oriented X3 BMI 26 Head and neck examination PERRLA no masses no cervical lymphadenopathy no jaundice Right upper chest dressing is on and stable no evidence of bleed Abdomen nontender nondistended soft no organomegaly guarding or rigidity/no signs of peritonitis Data : 11/28/19 04:30 11/28/19 04:30 Micro: Microbiology 11/24/19 17:28 Urine Culture - Preliminary Urine,Clean Catch Gram Negative Rods Gram Negative Rods#2 A&P Assessment and plan (1) Skin cancer: After thorough history physical examination and reviewing the chart and images with my personal interpretation patient was counseled for different options including incisional biopsy versus wide local excision of the mass and he agreed to proceed with the minimal approach in the form of incisional biopsy, and also agreed on medical oncology referral in the light of the biopsy. We will plan to perform the procedure on elective basis this coming Friday at an outpatient procedure Likely the patient will be discharged home today per Dr. Sheridan. Status: Acute Attestations Medical Necessity Statement*: Per hospitalist service Time Spent in Patient Care: 16 - 35 minutes (>than 50% of time spent in counselling and/or direct pt care on unit) . Coding Level of Care Code Acute Inside Channel Account Manager for Noé Kumar Diagnoses Skin cancer C44.90
[2019-11-28] MEDS: pantoprazole DR 40 mg Tablet PO (08:59)
[2019-11-28] MEDS: ferrous sulfate EC 325 mg Tablet PO ×2 (08:59→20:46)
[2019-11-28] MEDS: carvedilol 3.125 mg Tablet PO ×2 (08:59→18:05)
[2019-11-28] MEDS: enoxaparin 40 mg/0.4 mL Syringe SUBCUT (20:46)
--- NOTE | 2019-11-28 22:15 | P.PN_ITS ---
Subjective Subjective: Interval history: Patient seen and examined earlier this morning at ~11am. No new complaints today, states feeling well overall. After discussion with his family, he has decided to proceed with incisional biopsy and has been scheduled for the same on [facility] with Dr. Mckeon. Medications: Reviewed: Yes Vitals/I&O/Wt Last Vital Signs Temp 98.0 F 11/28/19 19:47 Pulse 73 11/28/19 19:47 Resp 24 H 11/28/19 19:47 BP 107/60 11/28/19 19:47 Pulse Ox 97 11/28/19 19:47 11/28/19 11/28/19 11/28/19 06:59 14:59 22:59 Intake Total 1000 / 2901.667 1240 / 1240 Output Total 550 / 1550 1800 / 1800 Balance 450 / 2058.755 6956 / 1240 -1800 / -560 Physical Exam Narrative: EXAM NARRATIVE: General: Alert and oriented x3 Lungs: clear to auscultation bilaterally Chest: Unchanged exophytic ulcer on right upper chest Cardiac: Regular rate and rhythm without significant murmur Abdomen: Soft, nontender without hepatosplenomegaly. Urostomy present, connected to drainage bag Extremities: No edema Data : 11/28/19 04:30 11/28/19 04:30 A&P Additional A&P Information 1. Dehydration -the patient shows signs of improvement in terms of hydration status. Continue with IV fluids d5NS at 100 mL/h. The patient was encouraged to continue with oral intake of fluids. 2. Hyperkalemia -resolved 3. ALONSO -the patient's creatinine has been improving gradually with hydration, now at 1.4 4. Constipation -milk of magnesia for treatment. 5. History of bladder cancer s/p cystectomy with creation of ileal conduit July 2019. This was done in [place]. This may potentially be leading to UTI. No mention of hydronephrosis on renal USg, clinically appears to be improving It is unlikely that urine will ever sterilize given ileal pouch. For future UA and cx collections, ideally should have specimen collected directly from stoma rather than bag. While this will always show gut colonizers, results will help determine if there are any MDR organisms and tailor current and future antibiotic selection. 6. Pyelonephritis -the patient's urine culture is growing 3 gram-negative rods and these are colonizers, as above. w/up requested to tailor treatment s/p Rocephin empirically. Leukocytosis resolved He is at high risk of recurrent pyelonephritis as the uretero-conduit junction is highly prone to reflux and pyelonephritis as a result. Output from stoma expected to be mucoid over the next many months, this is expected and does not indicate a UTI. 7. Systolic CHF -the patient's ejection fraction was 30% in July. Recheck ejection fraction was 25 to 30%. Note made of Stable from prior admission. 8. Exophytic mass with history of squamous cell carcinoma over chest wall with signs of invasion into the pectoralis muscle. Further recommendations per Dr. Oliveros. I appreciate his consultation. 9. Prophylaxis -Lovenox Dispo: Discharge to home with family, originally planned for today, however patient states his family will be unable to get him today and discharge home alone does not appear to be a safe option at this time. Attestations Medical Necessity Statement*: clinically improving, likely discharge in the upcoming 24-48 hrs Coding Level of Care Code Acute Web Content Editor for Noé Kumar
[2019-11-29 04:00] VITALS: BP 108/65; PULSE 63; RESP 18; TEMP 36.5; O2SAT 98
[2019-11-29 07:31] VITALS: BP 108/68; PULSE 75; RESP 18; TEMP 36.6; O2SAT 94
--- NOTE | 2019-11-29 08:29 | PM.DCS ---
Discharge Providers Date of Admission: 11/24/19 18:52 Date of Discharge: November 29, 2019 Attending Provider at Admission: Mil Geller MD Attending Provider at Discharge: Radha Miranda MD Primary Care Provider: Maxi Borrego MD Diagnoses at Discharge Discharge Diagnosis (1) Skin cancer: Status: Acute Problem details: 07/2017 large squamous cell skin cancer removed from right anterior chest wall. Current mass likely represents recurrence of the tumor (2) Cystitis: Status: Acute (3) Squamous cell carcinoma of skin of chest: Status: Acute (4) Dehydration: Status: Acute (5) Elevated BUN: Status: Acute (6) Generalized weakness: Status: Acute (7) Pyelonephritis: Status: Acute (8) Systolic congestive heart failure: Status: Acute Reason for Visit Reason for Visit: Reason For Visit: WEAKNESS Hospital Course Hospital Course: Patient presented to the emergency department secondary to weakness that has been gradually worsening over the prior 2 weeks. The patient upon admission was quite dehydrated and showed signs of pyelonephritis. He was started on IV Rocephin and given IV fluids. He did well with this and gradually his strength started to return. The patient had a bladder resection in July secondary to bladder cancer and has an ileal conduit forming his bladder pouch. This is likely the cause of his underlying infection into his kidneys. The patient has done well with Rocephin and so will be discharged home on cefdinir, however urine culture results are not back for the bacteria that were growing in his urine. Which one caused the infection is unclear at this time. If needed a catheterization of the stoma would be the most accurate in the future. The patient was advised that these infections may return. Overall the patient had significantly elevated BUN and creatinine upon admission and these have significantly improved since admission. A an ultrasound of the kidneys did not show signs of hydronephrosis. Due to the patient's weakness, an echocardiogram was done secondary to having new findings of systolic CHF with an ejection fraction of 30% in July of this year. The repeat showed that he had relatively stable ejection fraction but it was in the 25 to 30% range. For this reason we had to be slow in giving him IV fluids. The patient was also found to have a new mass on the right upper chest wall that was concerning for an underlying cancer. The patient had a history of removal of a squamous cell carcinoma in the same area in 2017. It had been thought to be gone, however over the last few months the patient had noted that it was starting to grow again and had not sought follow-up care for it. A CT scan was done and it appears that the tumor has grown into the pectoralis muscle. Dr. Oliveros consulted on this patient during the hospitalization and plans to do a biopsy of the lesion on 11/30/2019 as an outpatient. Further treatment and recommendations will depend on biopsy results. This is likely a squamous cell carcinoma. The patient could need total resection and radiation therapy, however it is possible that a less aggressive approach may be taken secondary to his other medical complications. Currently the patient is doing better and will return home where his family will care for him. The patient certainly does have a significant number of underlying illnesses and his long-term prognosis is fair to poor. The patient is in agreement with discharge home at this time. Physical Exam Narrative: EXAM NARRATIVE: General: Alert and oriented x3, unkempt Eyes: PERRLA, EOMI Mouth: Mucous membranes moist Neck: No palpable masses or thyromegaly Lungs: Scattered rhonchi without crackles or wheezes Chest: There is a ~4 cm raised lesion on the right upper chest that is friable, exophytic and oozing with blood and raised approximately 1.5 cm in height. It is highly suspicious of a cancer. Cardiac: Regular rate and rhythm without significant murmur Abdomen: Soft, nontender without hepatosplenomegaly. Urostomy present with thick chunky discharge present. Extremities: No edema Discharge Data Data Completed and Pending: Completed Studies During Hospitalization Category Date Time Status CT chest wo con 7 1250 Routine Cat Scan 11/26/19 12:11 Completed XR KUB portable 7 [id number] Stat Exams 11/24/19 16:38 Completed XR chest 1V jane ble [id number] Stat Exams 11/24/19 16:38 Completed CV echo limited 9 3308 Routine Ultrasound 11/26/19 16:33 Completed US renal BI* [id number] Routine Ultrasound 11/26/19 16:33 Completed Pending at discharge Category Date Time Status Blood Culture Sta t Lab 11/24/19 16:55 Results Blood Culture Sta t Lab 11/24/19 18:43 Results Urine Culture Sta t Lab 11/24/19 17:28 Results Vitals: Last Vital Signs Temp 97.8 F 11/29/19 07:31 Pulse 75 11/29/19 07:31 Resp 18 11/29/19 07:31 BP 108/68 11/29/19 07:31 Pulse Ox 94 11/29/19 07:31 Discharge Plan Discharge Patient Disposition: Home, Self-Care Condition: Stable Prescriptions: New cefdinir 300 mg capsule 300 mg PO BID 7 Days Qty: 14 RF: 0 Continued carvedilol 3.125 mg tablet 3.125 mg PO BID RF: 0 pantoprazole 40 mg tablet,delayed release (DR/EC) 40 mg PO DAILY RF: 0 Iron (ferrous sulfate) 325 mg (65 mg iron) Tablet 325 mg PO TID RF: 0 Stool Softener 100 mg Tablet 100 mg PO PRN PRN (Reason: Constipation) RF: 0 Discharge Orders: Discharge Order (Routine); Ordered 11/29/19 Ordered By: Mil Geller Referrals: [facility] [place] Home Care ([facility]) [Outside] Alvin Oliveros MD [Physician] - 11/30/19 11:00 am (Please check in for your procedure tomorrow at 1100 am at [facility] [place] surgical services.) Maxi Borrego MD [Primary Care Provider] - 12/07/19 10:40 am Discharge Diet: Advance as tolerated Discharge Activity: Resume usual activity Patient Instructions: Constipation - Adult, Cefdinir (By mouth), Urinary Tract Infection in Men (DC), Squamous Cell Carcinoma (DC) Activity Restrictions/Additional Instructions: Please make sure to follow-up with Dr. Borrego in the next 1 week to confirm sensitivity results on urine. Please follow-up with Dr. Oliveros tomorrow as scheduled for outpatient biopsy of skin lesion. Be sure to eat regularly and keep your hydration status up. Discharge Date/Time: 11/29/19 15:30 Discharge Attestations Time Spent in Discharge Care*: greater than 30 min Quality Metrics Clinical Quality Measures During this hospital stay, did patient experience: None Coding Level of Care Code Acute Public Affairs Officer for g Fwd Diagnoses Skin cancer C44.90 Cystitis N30.90 Squamous cell carcinoma of skin of chest C44.529 Dehydration E86.0 Elevated BUN R79.9 Generalized weakness R53.1 Pyelonephritis N12 Systolic congestive heart failure I50.20
--- NOTE | 2019-11-29 08:32 | PC.NURSE ---
Prn note Per Dr. Oliveros, He requests staff leave the in place as he will have surgery on 11/30/19
[2019-11-29 09:15] VITALS: BP 108/68; PULSE 75; RESP 18; TEMP 36.6; O2SAT 94
[2019-11-29] MEDS: pantoprazole DR 40 mg Tablet PO (09:28)
[2019-11-29] MEDS: carvedilol 3.125 mg Tablet PO (09:28)
[2019-11-29] MEDS: ferrous sulfate EC 325 mg Tablet PO (09:29)
--- NOTE | 2019-11-29 09:50 | PC.SOCIAL ---
IMM Updated Page 2 of IMM updated and given to patient. Initialed, dated, and timed and placed back in chart.
[2019-11-29 11:15] VITALS: BP 122/70; PULSE 76; RESP 20; TEMP 36.6; O2SAT 94
--- NOTE | 2019-11-29 15:30 | PC.NURSE ---
Assisted patient to get dressed. Urostomy to closed sysem drain bag left in place. Saline lock in right wrist left in place per Dr. Rodríguez's order as outpatient procedure planned for tomorrow at [email or web address]
--- NOTE | 2019-12-16 12:59 | PC.SOCIAL ---
Post D/C note: Received a call from patient's family member Cheyenne Wu stating that this patient on Friday. She states that she called [facility] and let their staff know a few days before he that he had had a BM and needed changed and that she couldn't change him herself because she had her four kids in the care. She states that their staff let him lay there in feces for 4 days. I let Cheyenne know that the appropriate people to report this issue to is the director of [facility], Mil Graves and if she chooses to file an official complaint, she would need to contact Jaylin Lennon. I provided her with the phone numbers to both and she verbalized understanding and thanks me for the information.
== END 2019-11-29 15:30 | disposition home or self-care (01) | DRG 683 ==
LOC: ER 19:14 → MEDSURG 20:18
PROVIDERS: Admitting Provider Family Medicine; Emergency Provider Family Medicine; PCP Family Medicine; Visit Provider Student in an Organized Health Care Education/Training Program
DX: N17.9 Acute kidney failure, unspecified (principal); N30.00 Acute cystitis without hematuria; I50.20 Unspecified systolic (congestive) heart failure; C67.9 Malignant neoplasm of bladder, unspecified; Z90.6 Acquired absence of other parts of urinary tract; E86.0 Dehydration; I95.1 Orthostatic hypotension; K59.00 Constipation, unspecified; Z87.891 Personal history of nicotine dependence; Z93.6 Other artificial openings of urinary tract status; E87.6 Hypokalemia; C44.529 Squamous cell carcinoma of skin of other part of trunk; N10 Acute pyelonephritis
CPT/HCPCS: 12345; 36415; 71045; 71250; 74018; 76770; 80053; 81001; 83605; 83690; 83735; 84100; 85025; 86141; 87040; 87077; 87086; 87186; 93005; 93308; 96372; 99283; J0696; J1650; J7030; J7040; J7799

== ENCOUNTER 2019-11-30 07:05 | Day surgery (SDC) | payer MEDICARE, MEDICAID, SELFPAY ==
[2019-11-29 19:23] VITALS: BMI 26.2
[2019-11-30 07:25] VITALS: BP 118/76; PULSE 75; RESP 18; TEMP 36.3; O2SAT 93
--- NOTE | 2019-11-30 07:53 | ANES.PREANE2 ---
Pre-Anesthetic Assessment Pre-Anesthetic Assessment: Height/Weight: Height 1.8 m Weight 85.275 kg Temp Pulse Resp BP Pulse Ox 97.4 F L 75 18 118/76 93 11/30/19 07:25 11/30/19 07:25 11/30/19 07:25 11/30/19 07:25 11/30/19 07:25 Preop Diagnosis: Right upper chest mass Proposed Procedure: Operation Date: 11/30/19 08:40 Proposed Procedures p biopsy of right upper chest mass(Right) - Alvin Oliveros MD Last intake: Intake Last Liquid Date 11/29/19 Last Liquid Time 20:00 Last Solid Date 11/29/19 Last Solid Time 20:00 Social: Social History: Tobacco (quit) and No alcohol Exam: Pre-Anes Outpt Exam: alert, oriented x 3, clear to auscultation bilaterally and regular rate & rhythm Airway: Submandibular: WNL Cervical ROM: WNL MP: 2 Dentition: Other (teeth very poor) History/ROS: No significant history except as noted Pulmonary: Pulmonary: None reported CV/HEM: CV/HEM: HTN : : Chronic renal Insufficiency Hepatic: Hepatic: None reported GI: GI: GERD Metabolic: Metabolic: None reported Musc/skel: Musc/skel: None reported Neuropsych: Neuropsych: None reported Anesthetic Plan: ASA status: 3 Anesthesia: Anesthesia Evaluation and MAC Risk of > 500 ml blood loss (7ml/kg in children): No PFSH Anesthesia PFSH: Medical History Elevated PSA Skin cancer 07/2017 large squamous cell skin cancer removed from right anterior chest wall. Current mass likely represents recurrence of the tumor Squamous cell carcinoma of skin of chest Surgical History History of urostomy S/P tonsillectomy Family History Father Prostate cancer Social History Smoking and tobacco status: former smoker Quit status (tobacco): has quit using tobacco Alcohol intake: unknown Lives independently: Yes Marital status: Single service: Yes Data Anesthesia Cardiac Studies: No Data to Display
[2019-11-30] MEDS: sodium chloride 0.9% 1,000 ML 30 ML IV (08:00)
[2019-11-30] MEDS: lidocaine 2% INJ 20 mL INJECTION (08:30)
--- NOTE | 2019-11-30 09:01 | W.PM.OPSUD ---
Surgery/Procedure H&P Update DATE OF PROCEDURE: November 30, 2019 DATE H&P PERFORMED: 11/28/19 H&P UPDATE INFORMATION: I have reviewed H&P completed within last 30 days, I have examined patient prior to procedure and No changes to prior documentation PREOP DIAGNOSIS: Right upper chest mass PRIMARY INDICATION FOR PROCEDURE: The same PLANNED PROCEDURE: Operation Date: 11/30/19 08:40 Proposed Procedures p biopsy of right upper chest mass(Right) - Alvin Oliveros MD
--- NOTE | 2019-11-30 09:44 | P.OP_ITS ---
Operative Report Date of procedure: November 30, 2019 Pre-op Diagnosis: Right upper chest mass Post-op diagnosis: same Procedure Done: Incisional biopsy including the skin margin and the actual growth at 5:00 o'clock with sutures marked skin margin Specimens removed/disposition: Incisional biopsy including the skin margin and the actual growth at 5:00 o'clock with sutures marked skin margin Surgeon: Alvin Oliveros General Internist And Physician Leader: multi craft maintenance technician Tory Wu Anesthesia: MAC (Mackenzie Lin) Condition: stable Disposition: same day Brief History: This is a pleasant 74 years old gentleman with 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 Informed consent per Procedure: After identifying the patient holding area, the correct site and side was marked before the procedure by myself, patient was then taken to the operative suite, was placed in in supine position, anesthesia was administered by the anesthesia provider ,Time-out was done verifying the patient's name/date of /planned procedure and destination after the procedure, all were in agreement, preoperative antibiotics administered per protocol, and beta jack protocol was confirmed Prep and drape of the upper chest and lower neck region&right axilla was done under the usual sterile technique. Local anesthesia 2% lidocaine was infiltrated site of the incision, elliptical skin incision was done including the normal skin and the right anterior axillary fold mass measured about 4.5 x 4.5 cm and 2 cm above the Skin surface fungating, cauliflower,incision was done all the way down to the subcutaneous tissues , the specimen was oriented by 3-0 nylon sutures marking normal skin Hemostasis was achieved using Bovie cauterization followed by closure by 3-0 Vicryl followed by Adaptic and dry dressing Specimen was passed to the circulating nurse for permanent pathology Count was completed at the end of the procedure Patient was taken to the recovery room in stable condition I was present for the whole entire procedure
[2019-11-30 09:55] VITALS: BP 105/55; PULSE 66; RESP 18; TEMP 36.3; O2SAT 96
[2019-11-30 10:14] VITALS: BP 102/69; PULSE 65; RESP 18; O2SAT 96
--- NOTE | 2019-11-30 10:35 | SUR.PHASEII ---
Nursing: Dex at [facility] notified of patient discharge following surgery and orders for dressing changes.
== END 2019-11-30 10:30 | disposition home or self-care (01) ==
PROVIDERS: PCP Family Medicine; Visit Provider Surgery
PROC: (CPT 11606; principal; 2019-11-30 08:40)
DX: C44.519 Basal cell carcinoma of skin of other part of trunk (principal); I10 Essential (primary) hypertension; K21.9 Gastro-esophageal reflux disease without esophagitis; Z87.891 Personal history of nicotine dependence
CPT/HCPCS: 11606; 12032; 12345; 88304; J0690; J2001; J2370; J2704; J7030

== ENCOUNTER 2019-12-11 11:40 | Emergency (ER) | payer MEDICARE, MEDICAID, SELFPAY ==
[2019-12-11 11:41] VITALS: BP 90/52; PULSE 137; RESP 24; TEMP 33.8; O2SAT 69; BMI 23.7
--- NOTE | 2019-12-11 11:57 | ECG_ITS ---
Measurements Intervals [place] Rate: 106 P: MI: 0 QRS: 23 QRSD: 110 T: 90 QT: 329 QTc: 438 ATRIAL FIBRILLATION WITH RAPID VENTRICULAR RESPONSE NONSPECIFIC ST & T-WAVE ABNORMALITY ABNORMAL RHYTHM ECG Compared to ECG 11/24/2019 17:12:30 Sinus rhythm no longer present T-wave abnormality still present Electronically Signed On 12-12-2019 11:06:34 CDT by Gurpreet Thomas MD [email or web address]
--- NOTE | 2019-12-11 12:22 | ED_ITS ---
HPI - Weakness General: Chief complaint: Weakness Stated complaint: WEAKNESS Time Seen by Provider: 12/11/19 11:52 History of Present Illness: HPI Narrative: Patient is a 74 year old male presenting with AMS and weakness. He is not able to provide history. He is pale and with poor respiratory effort. He has a history of recurrent cancer and has had home health since being out of the hospital recently. Home health could not get a BP today and called EMS. He is tachycardic on arrival and BP was 80 manually. Sat 65% but unclear if it was picking up. No code status is available. Review of Systems General: Reports: ROS unobtainable due to mental status PFS ED PFSH: Medical History (Updated 12/11/19 @ 13:32 by Kely Grady MD) Elevated PSA Skin cancer 07/2017 large squamous cell skin cancer removed from right anterior chest wall. Current mass likely represents recurrence of the tumor Squamous cell carcinoma of skin of chest Surgical History (System 12/03/19 @ 12:37 by Antonia Ackerman) History of urostomy S/P tonsillectomy Family History (System 12/03/19 @ 12:37 by Antonia Ackerman) Father Prostate cancer Social History (System 12/03/19 @ 12:37 by Antonia Ackerman) Smoking and tobacco status: never smoked Quit status (tobacco): has quit using tobacco Alcohol intake: unknown Lives independently: Yes Marital status: Single service: Yes Physical Exam Const: EXAM LIMITATIONS: altered mental status NUTRITIONAL APPEARANCE: cachectic HENMT: HEAD & SCALP: normal to inspection FACE & SINUS: normal facial exam MOUTH: other (Dry mucous membranes) Eye: OTHER: Not making eye contact, pupils sluggish Neck/C-Spine: COMMON NORMALS: supple Chest: COMMONS NORMALS: normal inspection of the chest Resp: OTHER: Agonal respirations Cardio: RATE: tachycardic GI: COMMON NORMALS: Soft to palpation and non-tender INSPECTION: Yes normal to inspection and Yes GI ostomy present (Reportedly an ileostomy but with thick purulent drainage) AUSCULTATION: Yes normoactive bowel sounds PALPATION: Yes Soft to palpation Back/Pelvis: COMMON NORMALS: thoracic and lumbar spine normal to inspection Extremity: COMMON NORMALS: normal to inspection Neuro: SENSORIUM/ORIENTATION: Yes obtunded OTHER: Unresponsive to painful stimuli Psych: COMMON NORMALS: mental status grossly normal, cooperative and normal affect Skin: COMMON NORMALS: no rashes or lesions noted and turgor normal GENERAL SKIN EXAM: no rashes or lesions noted and turgor normal Course ED course: I called and spoke with the patient's daughter in law and son - they had never had any conversations with him about end of life care - however they feel like he is tired of fighting and he had stopped taking his medicines - and had been refusing physical therapy. He has been in and out of the hospital with infections and dehydration. After discussing the situation at length with the son - we decided to make him comfort care. Family is coming to the ED to be with him. Reevaluation(s): Reevaluation #1: Son and [id number] were at the bedside with the patient for a short time. He went into the tach on the monitor and had no palpable pulses. He had no respiratory effort at that point. He was pronounced and passed peacefully. Vital Signs: Vital signs: Vital Signs Temperature 93 F L 12/11/19 11:41 Pulse Rate 137 H 12/11/19 11:41 Respiratory Rate 24 H 12/11/19 11:41 Blood Pressure 90/52 12/11/19 11:41 Pulse Oximetry 69 L 12/11/19 11:41 Discharge Plan Discharge Patient Disposition: Clinical Impression: Sepsis Qualifiers: Sepsis type: sepsis due to unspecified organism Condition: Stable Prescriptions: No Action carvedilol 3.125 mg tablet 3.125 mg PO BID RF: 0 pantoprazole 40 mg tablet,delayed release (DR/EC) 40 mg PO DAILY RF: 0 ferrous sulfate [Iron (ferrous sulfate)] 325 mg (65 mg iron) Tablet 325 mg PO TID RF: 0 docusate sodium [Stool Softener] 100 mg Tablet 100 mg PO PRN PRN (Reason: Constipation) RF: 0 [place] 5-325 mg tablet 1 tab PO Q6H PRN (Reason: pain) Qty: 10 RF: 0 Referrals: Maxi Borrego MD [Primary Care Provider] - Discharge Date/Time: 12/11/19 14:28 Coding Level of Care Code ED Configuration Consultant for Noé Kumar
--- NOTE | 2019-12-11 13:21 | PC.NURSE ---
Time of called at [address] Gr[address]. [facility] called and pt was [facility] by [place] [facility] release.
--- NOTE | 2019-12-11 13:41 | PC.NURSE ---
Cruz Del Angel from [facility] declined pt.
== END 2019-12-11 14:28 | disposition expired ==
PROVIDERS: Emergency Provider Emergency Medicine; PCP Family Medicine
DX: A41.9 Sepsis, unspecified organism (principal); Z85.828 Personal history of other malignant neoplasm of skin; Z87.891 Personal history of nicotine dependence
CPT/HCPCS: 12345; 93005; 93010; 99281; 99283